=== PATIENT | female | born 1995 | race Caucasian/White ===

== ENCOUNTER 2017-01-12 12:39 | Emergency (ER) | payer MEDICAID ==
[~2017-01-12 12:39] MED LIST: EPIP0.3I IM; MACR100C2 PO; PREN1CAP7 PO; PROM25TA5 PO
[2017-01-12 12:55] VITALS: RESP 24; TEMP 98.7
[2017-01-12] MEDS ORDERED: ONDANSETRON HCL 4 MG/2 ML VIAL IV PUSH ONE (13:30)
[2017-01-12] MEDS ORDERED: LACTATED RINGER'S 1000 ML INJ 1,000 ML IV ONE (13:30)
[2017-01-12] MEDS ORDERED: ACETAMINOPHEN 325 MG TAB PO ONE (13:30)
--- NOTE | 2017-01-12 13:47 | PD ---
HPI Chief Complaint Contractions, vomiting, headache Date Seen: Jan 12, 2017 Time Seen: 13:10 (Kyle Fagan MD R1) Travel History International Travel<30 Days: No Contact w/Intl Traveler<30Days: No Known Affected Area: No (Kyle Fagan MD R1) History of Present Illness HPI 21 year old at 36/6 weeks gestation presents to OB ED with complaints of contractions beginning yesterday evening and occurring throughout today. She states her contractions have been occurring about every 5-6 minutes. She is unsure if they have been increasing in intensity. She also reports multiple episodes of vomiting overnight with her last episode within an hour prior to presentation here. She does state others in her household have been sick with a stomach bug after eating out earlier in the week however everyone else seems to have gotten better. She denies any fevers. She also complains of a headache that began last night and is now slightly worse. Denies RUQ pain or worsening lower extremity swelling. She continues to have swelling up to her sock line bilaterally which is her baseline. She denies dysuria or hematuria. Denies chest pain. She does report mild shortness of breath occurring since last night as well. Para: 1 : 3 (Kyle Fagan MD R1) History Past Medical History Narrative Medical History of seizures, she reports her last seizure was a couple months ago during this Anxiety (Kyle Fagan MD R1) Obstetric History Obstetric History 1 spontaneous Previous delivery on 04/25/2013 at 38 weeks gestation via vaginal delivery at [facility], at 6 weeks of age due to SIDS (Kyle Fagan MD R1) Past Surgical History Narrative Surgical Cholecystectomy in 2012 (Kyle Fagan MD R1) Family History Family History: Negative (Kyle Fagan MD R1) Social History Alcohol Use: No Tobacco Use: Yes (Admits to smoking 1 PPD in up until 18 weeks gestation when she quit) Substance Abuse: No (Kyle Fagan MD R1) Allergies-Medications (Allergen,Severity, Reaction): Coded Allergies: Cat Dander (Verified Allergy, Severe, 10/05/16) Coconut (Unverified Allergy, Severe, 10/05/16) Dilaudid (Unverified Allergy, Severe, 10/05/16) Latex (Unverified Allergy, Severe, 10/05/16) Bees (Verified Allergy, Unknown, 10/05/16) Home Meds Active Scripts Ondansetron Odt (Zofran Odt)8 Mg Tab8 Mg SL Q8H PRN (NAUSEA OR VOMITING) #15 TAB Ref 0 Prov:Kyle Fagan MD 01/12/17 Nitrofurantoin Monohydrate Macrocrystals (Macrobid)100 Mg [id number] Mg PO BID #14 CAP Ref 0 Prov:Cece Acharya 10/05/16 Promethazine (Phenergan)25 Mg Tab25 Mg PO Q6H PRN (Nausea/Vomiting) #30 TAB Ref 1 Prov:Cece Acharya 10/05/16 Epinephrine Inj (Epipen 2-Sal Inj)0.3 Mg/0.3 Ml Pfpen0.3 Mg IM ONCE PRN ( ALLERGIC REACTION) #1 PACK Ref 0 Prov:Cece Acharya 10/05/16 Reported Medications W/O Vit A W/ Fe Fumar (Citranatal [place])27-1-260 Mg Cap1 Cap PO DAILY #30 CAP Ref 0 09/07/16 Discontinued Scripts Ondansetron Odt (Zofran Odt)8 Mg Tab8 Mg SL Q8H PRN (NAUSEA OR VOMITING) #15 TAB Ref 0 Prov:Kyle Fagan MD R1 01/12/17 Review of Systems Except as stated in HPI: all other systems reviewed are Neg (Kyle Fagan MD R1) Physical Exam Narrative GENERAL: Well-nourished, well-developed patient. SKIN: Warm and dry. HEAD: Normocephalic and atraumatic. EYES: No scleral icterus. No injection or drainage. ENT: No nasal drainage noted. Mucous membranes pink. Airway patent. NECK: Supple, trachea midline. No JVD. CARDIOVASCULAR: Regular rate and rhythm without murmurs, gallops, or rubs. RESPIRATORY: Breath sounds equal bilaterally. No accessory muscle use. ABDOMEN/GI: Abdomen soft, non-tender, bowel sounds present, no rebound, no guarding Gravid to 37 weeks size GENITOURINARY: External Genitalia: intact and normal in appearance Cervix: [-] Dilatation: closed Effacement: 0% Station: -2 Presentation: vertex Membranes: [] Uterine Contractions: None on tocometer FHT's: Category: I Baseline: 140s Reactive: yes Variability: mod Decels: one variable decel noted EXTREMITIES: No cyanosis or edema. BACK: Nontender without obvious deformity. No CVA tenderness. NEUROLOGICAL: Awake and alert. Motor and sensory grossly within normal limits. Normal speech. (Kyle Fagan MD R1) Data Data Vital Signs Reviewed: Yes Orders Vital Signs (Adult) .ON ADMISSION (01/12/17 13:19) ^ Labor Status (01/12/17 13:19) ^ Hydration (01/12/17 13:19) Acetaminophen (Tylenol) (01/12/17 13:30) Lr (Bolus) Inj (01/12/17 13:30) Complete Blood Count With Diff (01/12/17 13:19) Basic Metabolic Panel (Bmp) (01/12/17 13:19) Ondansetron Inj (Zofran Inj) (01/12/17 13:30) (Kyle Fagan MD R1) MDM Medical Record Reviewed: Yes Plan 21 year old at 36/6 weeks gestation presents to OB ED with complaints of contractions beginning yesterday evening and occurring throughout today, as well as vomiting throughout last night, and headache. 1. IUP - Category I tracing - No contractions on tocometer - Cervix: closed/0%/-2 - No report of loss of fluid - GBS status unknown - Counseled patient on signs of active labor and need follow up with her OB provider for continued care 2. Dehydration & Vomiting - Given 1L bolus of LR - Zofran 4 mg IV once - Encouraged oral hydration - BMP remarkable for potassium of 3.4 - Will provide prescription for sublingual zofran prn N/V for outpatient 3. Headache - Tylenol 650 mg po once - Tylenol prn at home - Advised patient that if headaches worsen or are accompanied by visual symptoms to seek care from her OB provider molnia Mujica (Kyle Fagan MD R1) Diagnosis Diagnosis: Primary Impression: Dehydration Additional Impression: Intrauterine Disposition: DISCHARGE HOME Condition: Stable Scripts Ondansetron Odt (Zofran Odt)8 Mg Tab8 Mg SL Q8H PRN (NAUSEA OR VOMITING) #15 TAB Ref 0 Prov:Kyle Fagan MD R1 01/12/17 Attestation Patient seen and discussed with resident. Agree with management (Justine Mujica MD ) Kyle Fagan MD R1 Jan 12, 2017 13:47 Justine Mujica MD Jan 12, 2017 19:36
[2017-01-12 14:21] LABS: AUTOMATED NEUTROPHIL # 12.8 TH/MM3 (1.8-7.7); BASOPHIL % 0.2 % (0.0-2.0); EOSINOPHIL # 0.1 TH/MM3 (0-0.4); EOSINOPHIL % 0.5 % (0.0-4.0); HEMO FLAGS DIFF FINAL; LYMPH % 5.7 % (9.0-44.0); LYMPHOCYTE # 0.8 TH/MM3 (1.0-4.8); MEAN CELL VOLUME 87.3 FL (80.0-100.0); MEAN CORPUSCULAR HGB CONC 34.3 % (32.0-36.0); MONO % 5.6 % (0.0-8.0); PLATELET COUNT 217 TH/MM3 (150-450); RED BLOOD COUNT 4.12 MIL/MM3 (4.00-5.30); RED CELL DISTRIBUTION WIDTH 13.5 % (11.6-17.2); WHITE BLOOD COUNT 14.5 TH/MM3 (4.0-11.0)
[2017-01-12 14:36] LABS: BICARBONATE 21.7 MEQ/L (21.0-32.0); POTASSIUM 3.4 MEQ/L (3.5-5.1)
[2017-01-12 14:45] VITALS: BP 124/50; PULSE 104
[2017-01-12 14:50] VITALS: PULSE 108
[2017-01-12 14:55] VITALS: PULSE 111
[2017-01-12] MEDS ORDERED: POTASSIUM CHLORIDE 20 MEQ CONTROLLED RELEASE TAB PO ONE (15:00)
[2017-01-12] MEDS ORDERED: ZOFR8TAB4 SL ×2 (15:02→15:06)
[2017-01-17] MEDS ORDERED: ZOFR4TAB PO (13:46)
[2017-01-31] MEDS ORDERED: RANI150T PO (16:34)
== END 2017-01-12 15:45 | disposition home or self-care (01) ==
LOC: HOBED 12:39
DX: E86.0 Dehydration (principal); R56.9 Unspecified convulsions; R51 Headache; Z3A.36 36 weeks gestation of pregnancy
CPT/HCPCS: 80048; 85025; 96361; 96374; 99284; J2405; J7120

== ENCOUNTER 2017-02-16 16:56 | Emergency (ER) | payer MEDICAID ==
[~2017-02-16 16:56] MED LIST changes: -MACR100C2 PO; -PROM25TA5 PO; +RANI150T PO; +ZOFR4TAB PO; +ZOFR8TAB4 SL
[2017-02-16 17:25] VITALS: PULSE 129; O2SAT 100
[2017-02-16 17:30] VITALS: PULSE 134; O2SAT 100
[2017-02-16 17:35] VITALS: PULSE 119; O2SAT 100
[2017-02-16 17:40] VITALS: PULSE 124; O2SAT 100
[2017-02-16 17:51] LABS: HEMATOCRIT 37.8 % (35.0-46.0); MEAN CORPUSCULAR HEMOGLOBIN 28.2 PG (27.0-34.0); MEAN CORPUSCULAR HGB CONC 33.2 % (32.0-36.0); PLATELET COUNT 236 TH/MM3 (150-450); RED BLOOD COUNT 4.45 MIL/MM3 (4.00-5.30); RED CELL DISTRIBUTION WIDTH 13.6 % (11.6-17.2); REVIEW FLAG FINAL
[2017-02-16 18:22] LABS: ALT (GPT) 19 U/L (9-42); ANION GAP 12 MEQ/L (5-15); AST (GOT) 11 U/L (16-38); BICARBONATE 19.5 MEQ/L (21.0-32.0); BLOOD UREA NITROGEN 4 MG/DL (7-18); CHLORIDE 105 MEQ/L (98-107); GLOMERULAR FILTRATION RATE 145 ML/MIN (>89); POTASSIUM 3.6 MEQ/L (3.5-5.1); SODIUM (NA) 136 MEQ/L (136-145); URIC ACID 3.6 MG/DL (2.6-6.0)
[2017-02-16 18:24] LABS: ALKALINE PHOSPHATASE 206 U/L (45-117); BLOOD, URINE NEG (NEG); COMMENT (UR) CULT NOT INDICATED; CULTURE IF INDICATED CULT NOT INDICATED; GLUCOSE,URINE NEG (NEG); KETONE, URINE NEG (NEG); MUCUS URINE FEW /lpf (OCC); NITRITE,URINE NEG (NEG); SQUAMOUS EPITHELIAL CELL URINE 2 /hpf (0-5); TOTAL BILIRUBIN ADULT 0.2 MG/DL (0.2-1.0); URINE COLOR YELLOW (YELLW/STRAW)
--- NOTE | 2017-02-16 19:36 | PD ---
HPI Chief Complaint sent from [facility] for eval of elevated blood pressure Date Seen: Feb 16, 2017 Time Seen: 18:45 Travel History International Travel<30 Days: No Contact w/Intl Traveler<30Days: No Known Affected Area: No History of Present Illness HPI Pt is a 21 y/o with IUP at 39w1d who was sent from [facility] for evaluation of elevated blood pressure. Pt with multiple complaints including SOB, heart racing, feeling like she is going to "pass out" She reports irreg contractions. denies vb, lof. +FM History Past Medical History Narrative Medical anxiety, seizure disorder (no meds) Obstetric History Obstetric History SAB x 1 FTSVD 2012, baby at 6 wks, SIDS Past Surgical History Surgical History: No Previous Surgery Family History Family History: Negative Social History Alcohol Use: No Tobacco Use: Yes Substance Abuse: No Allergies-Medications (Allergen,Severity, Reaction): Coded Allergies: Cat Dander (Verified Allergy, Severe, 02/10/17) Coconut (Unverified Allergy, Severe, 02/10/17) Dilaudid (Unverified Allergy, Severe, 02/10/17) Latex (Unverified Allergy, Severe, 02/10/17) Bees (Verified Allergy, Unknown, 02/10/17) Home Meds Active Scripts Ranitidine 150 Mg Qdd702 Mg PO BID #60 TAB Ref 3 Prov:Cece Acharya 01/31/17 Ondansetron (Zofran)4 Mg Tab4 Mg PO Q8HR PRN (NAUSEA OR VOMITING) #30 TAB Ref 0 Prov:Cece Acharya 01/17/17 Ondansetron Odt (Zofran Odt)8 Mg Tab8 Mg SL Q8H PRN (NAUSEA OR VOMITING) #15 TAB Ref 0 Prov:Kyle Fagan MD R1 01/12/17 Epinephrine Inj (Epipen 2-Sal Inj)0.3 Mg/0.3 Ml Pfpen0.3 Mg IM ONCE PRN ( ALLERGIC REACTION) #1 PACK Ref 0 Prov:Cece Acharya 10/05/16 Reported Medications W/O Vit A W/ Fe Fumar (Citranatal [place])27-1-260 Mg Cap1 Cap PO DAILY #30 CAP Ref 0 09/07/16 Review of Systems General / Constitutional: Weight Gain Eyes: No: Diploplia, Blurred Vision, Visual changes, Pain, Photophobia, Other Cardiovascular: Palpitations, Tachycardia Respiratory: Short of Breath Gastrointestinal: Abdominal Pain Genitourinary: Pelvic Pain Musculoskeletal: No: Limited ROM, Weakness, Cramping, Edema, Pain, Other Skin: No Rash, No Itching, No Dryness, No Lumps, No Change in Pigmentation, No Change in Nails, No Alopecia, No Lesions, No Breast Lumps, No Breast Tenderness , No Breast Swelling, No Other Neurologic: Dizziness Psychiatric: Anxiety Endocrine: No: Heat Intolerance, Cold Intolerance, Polydipsia, Polyuria, Other Hematologic/Lymphatic: No Easy Bruising, No Lymph Node Enlargement, No Other Physical Exam Vital Signs Date Time Temp Pulse Resp B/P Pulse Ox O2 Delivery O2 Flow Rate FiO2 02/16/17 17:40 124 100 02/16/17 17:35 119 100 02/16/17 17:30 134 100 02/16/17 17:25 129 100 121/73, Narrative GENERAL: Well-nourished, well-developed patient. SKIN: Warm and dry. HEAD: Normocephalic and atraumatic. EYES: No scleral icterus. No injection or drainage. ENT: No nasal drainage noted. Mucous membranes pink. Airway patent. NECK: Supple, trachea midline. No JVD. CARDIOVASCULAR: Regular rate and rhythm without murmurs, gallops, or rubs. RESPIRATORY: Breath sounds equal bilaterally. No accessory muscle use. ABDOMEN/GI: Abdomen soft, non-tender, bowel sounds present, no rebound, no guarding Gravid GENITOURINARY: External Genitalia: intact and normal in appearance BUS glands: [wnl] Cervix: mid-position Dilatation: 2 Effacement: 50 Station: -3 Presentation: [facility] Membranes: intact Uterine Contractions: irregular FHT's: Category: 1 Baseline: 130s Reactive: yes Variability: mod Decels: none EXTREMITIES: No cyanosis or edema. BACK: Nontender without obvious deformity. No CVA tenderness. NEUROLOGICAL: Awake and alert. Motor and sensory grossly within normal limits. Five out of 5 muscle strength in all muscle groups. Normal speech. Data Data Vital Signs Reviewed: Yes Orders Vital Signs (Adult) .ON ADMISSION (02/16/17 17:25) ^ Labor Status (02/16/17 17:25) Urinalysis - C+S If Indicated (02/16/17 17:25) ^ Non Stress Test (02/16/17 17:25) Cbc No Diff, Includes Plts (02/16/17 17:25) Comprehensive Metabolic Panel (02/16/17 17:25) Uric Acid (02/16/17 17:25) Labs Laboratory Tests Test 02/16/17 17:35 White Blood Count 15.0 Red Blood Count 4.45 Hemoglobin 12.5 Hematocrit 37.8 Mean Corpuscular Volume 85.0 Mean Corpuscular Hemoglobin 28.2 Mean Corpuscular Hemoglobin 33.2 Concent Red Cell Distribution Width 13.6 Platelet Count 236 Mean Platelet Volume 8.9 Urine Color YELLOW Urine Turbidity CLEAR Urine pH 6.0 Urine Specific [place] 1.011 Urine Protein NEG Urine Glucose (UA) NEG Urine Ketones NEG Urine Occult Blood NEG Urine Nitrite NEG Urine Bilirubin NEG Urine Urobilinogen LESS THAN 2.0 Urine Leukocyte Esterase TRACE Urine WBC 1 Urine Squamous Epithelial 2 Cells Urine Mucus FEW Microscopic Urinalysis Comment CULT NOT INDICATED Sodium Level 136 Potassium Level 3.6 Chloride Level 105 Carbon Dioxide Level 19.5 Anion Gap 12 Blood Urea Nitrogen 4 Creatinine 0.54 Estimat Glomerular Filtration 145 Rate Random Glucose 121 Uric Acid 3.6 Calcium Level 8.9 Total Bilirubin 0.2 Aspartate Amino Transf 11 (AST/SGOT) Alanine Aminotransferase 19 (ALT/SGPT) Alkaline Phosphatase 206 Total Protein 7.1 Albumin 2.6 MDM Medical Record Reviewed: Yes Diagnosis Diagnosis: Primary Impression: 39 weeks gestation of Additional Impression: Gestational dyspnea Disposition: 01 DISCHARGE HOME Condition: Stable Patient Instructions: General Instructions Additional Instructions: DRINK PLENTY OF WATER DURING DAY, RETURN FOR LEAKING FLUID, VAGINAL BLEEDING, STRONG CONTRACTIONS OR DECREASE IN MOVEMENT. RETURN 02/17/17 @ 6PM FOR INDUCTION OF LABOR. Departure Forms: Tests/Procedures Oj Shields MD Feb 16, 2017 19:36
== END 2017-02-16 19:00 | disposition home or self-care (01) ==
LOC: HOBED 16:56
DX: O26.93 Pregnancy related conditions, unspecified, third trimester (principal); R06.00 Dyspnea, unspecified; Z3A.39 39 weeks gestation of pregnancy
CPT/HCPCS: 80053; 81001; 84550; 85027; 99284

== ENCOUNTER 2017-02-17 23:56 | Inpatient (IN) | payer MEDICAID ==
[~2017-02-17] VITALS: Ht 167.6 cm; Wt 103.4 kg
[2017-02-18] VITALS (88 sets, daily range): BP systolic 76–144; BP diastolic 35–85; PULSE 75–164; RESP 18–24; TEMP 98–98.8
[2017-02-18] MEDS ORDERED: PROM25TA5 PO (01:12)
[2017-02-18] MEDS ORDERED: LIDOCAINE HCL 1% 50 ML VIAL ONE (01:18)
[2017-02-18] MEDS: LACTATED RINGER'S 1000 ML INJ 1,000 ML IV SCH ×3 (01:35→16:11)
[2017-02-18] MEDS ORDERED: LACTATED RINGER'S 1000 ML INJ 1,000 ML IV PRN (03:37)
[2017-02-18] MEDS ORDERED: OXYTOCIN 30 UNITS-500ML PREMIX 500 ML IV ONE (03:45)
[2017-02-18] MEDS ORDERED: CITRIC ACID-SODIUM CITRATE LIQ 30 ML UDC PO SCH (03:45)
[2017-02-18] MEDS ORDERED: LIDOCAINE HCL 1% 50 ML VIAL I-DERMAL PRN (03:45)
[2017-02-18] MEDS ORDERED: SODIUM CHLORID 0.9% 500 ML INJ 500 ML IV PRN (03:45)
[2017-02-18] MEDS ORDERED: LIDOCAINE HCL 1% 50 ML VIAL INFIL PRN (03:45)
[2017-02-18] MEDS ORDERED: MINERAL OIL 10 ML VIAL TOPICAL PRN (03:45)
[2017-02-18] MEDS ORDERED: ONDANSETRON HCL 4 MG/2 ML VIAL IV PRN (03:45)
[2017-02-18 03:48] LABS: BASOPHIL # 0.1 TH/MM3 (0-0.2); BASOPHIL % 0.5 % (0.0-2.0); EOSINOPHIL # 0.4 TH/MM3 (0-0.4); EOSINOPHIL % 2.7 % (0.0-4.0); HEMATOCRIT 37.1 % (35.0-46.0); HEMO FLAGS DIFF FINAL; LYMPH % 22.4 % (9.0-44.0); LYMPHOCYTE # 3.1 TH/MM3 (1.0-4.8); MEAN CELL VOLUME 86.1 FL (80.0-100.0); MEAN CORPUSCULAR HEMOGLOBIN 28.5 PG (27.0-34.0); MEAN CORPUSCULAR HGB CONC 33.1 % (32.0-36.0); MONO % 9.5 % (0.0-8.0); NEUT % 64.9 % (16.0-70.0); PLATELET COUNT 231 TH/MM3 (150-450); RED CELL DISTRIBUTION WIDTH 13.6 % (11.6-17.2); WHITE BLOOD COUNT 13.8 TH/MM3 (4.0-11.0)
[2017-02-18] MEDS ORDERED: SODIUM CHLOR 0.9% 1000 ML INJ 1,000 ML IV PRN (03:57)
[2017-02-18] MEDS ORDERED: PENICILLIN G POTASSIUM INJ 5,000,000 UNITS in SODIUM CHLORIDE 0.9% INJ 100 ML IV ONE (04:00)
--- NOTE | 2017-02-18 04:02 | HHI.HP ---
HPI Chief Complaint IOL Date Seen: Feb 18, 2017 Travel History International Travel<30 Days: No Contact w/Intl Traveler<30Days: No History of Present Illness HPI 21 yo @ 39w3d with EDC 02-22-2017. care with [facility]. Patient with history of anxiety and pseudoseizures. Also history of polysubstance abuse. Patient was seen 02-16 in the clinic and sent to L&D for BP check. Bps stable, and mild tachycardia with anxiety. Workup was negative. She was scheduled for IOL. History Past Medical History Narrative Medical Polysubstance abuse - methamphetamine/benzo/cocain/IV Dilaudid/marijuana - last admit Anxiety - ADHD previously on Zoloft Pseudoseizures/hx of brain cyst Asthma Obstetric History Obstetric History x 1 ( of SIDS @ 6 weeks) SAB x 1 Past Surgical History Narrative Surgical Cholecystectomy 2013 Brain cyst removed 2014 Family History Family History: Negative Social History Tobacco Use: Yes Substance Abuse: Yes (hx of polysubstance abuse) Allergies-Medications (Allergen,Severity, Reaction): Coded Allergies: Cat Dander (Verified Allergy, Severe, 02/10/17) Coconut (Unverified Allergy, Severe, 02/10/17) Dilaudid (Unverified Allergy, Severe, 02/10/17) Latex (Unverified Allergy, Severe, 02/10/17) Bees (Verified Allergy, Unknown, 02/10/17) Home Meds Active Scripts Ranitidine 150 Mg Oko120 Mg PO BID #60 TAB Ref 3 Prov:Cece Acharya 01/31/17 Reported Medications Promethazine (Phenergan)25 Mg Tab25 Mg PO Q6H PRN (Nausea/Vomiting) Ref 0 02/18/17 W/O Vit A W/ Fe Fumar (Citranatal [place])27-1-260 Mg Cap1 Cap PO DAILY #30 CAP Ref 0 09/07/16 Discontinued Scripts Ondansetron (Zofran)4 Mg Tab4 Mg PO Q8HR PRN (NAUSEA OR VOMITING) #30 TAB Ref 0 Prov:Cece Acharya 01/17/17 Ondansetron Odt (Zofran Odt)8 Mg Tab8 Mg SL Q8H PRN (NAUSEA OR VOMITING) #15 TAB Ref 0 Prov:Kyle Fagan MD R1 01/12/17 Epinephrine Inj (Epipen 2-Sal Inj)0.3 Mg/0.3 Ml Pfpen0.3 Mg IM ONCE PRN ( ALLERGIC REACTION) #1 PACK Ref 0 Prov:Cece Acharya 10/05/16 Review of Systems General / Constitutional: No: Fever, Chills HENT: No: Headaches, Vertigo Cardiovascular: No: Chest Pain or Discomfort, Palpitations Respiratory: No: Cough, Short of Breath Gastrointestinal: No: Nausea, Vomiting, Diarrhea, Abdominal Pain Genitourinary: No: Urgency, Frequency, Dysuria Musculoskeletal: No: Limited ROM, Weakness Skin: No Rash, No Itching, No Lesions Neurologic: No: Focal Abnormalities, Coordination Problem Physical Exam BP: 113/66, P92, R 18. Pain 0 Narrative GENERAL: Well-nourished, well-developed patient. SKIN: Warm and dry. HEAD: Normocephalic and atraumatic. EYES: No scleral icterus. No injection or drainage. ENT: No nasal drainage noted. Mucous membranes pink. Airway patent. NECK: Supple, trachea midline. No JVD. CARDIOVASCULAR: Regular rate and rhythm without murmurs, gallops, or rubs. RESPIRATORY: Breath sounds equal bilaterally. No accessory muscle use. BREASTS: Bilateral exam showed no masses , no retractions, no nipple discharge. ABDOMEN/GI: Abdomen soft, non-tender, no rebound, no guarding Gravid GENITOURINARY: TOCO: No UC internal OS CLOSED (external OS 2cm )/50%/-3 FHT's: Category: I Baseline: 120 Reactive: + accelerations Variability: mod Decels: [-] EXTREMITIES: No cyanosis or edema. BACK: Normal ROM NEUROLOGICAL: Awake and alert. Motor and sensory grossly within normal limits. Normal speech. BEDSIDE US: Cephalic presentation confirmed Data Data Vital Signs Reviewed: Yes Orders Lidocaine 1% Inj (50 Ml) (Xylocaine 1% I (02/18/17 01:18) Admit To Inpatient (02/18/17 ) Code Status (02/18/17 03:37) Vital Signs (Adult) .Per protocol (02/18/17 03:37) Activity Oob Ad Suzanne (02/18/17 03:37) Heart (02/18/17 03:37) Amnioinfusion (02/18/17 03:37) Urinary Catheter Management .ONCE (02/18/17 03:37) Diet Liquid (02/18/17 Breakfast) Lactated Ringer's 1000 Ml Inj (Lr 1000 M (02/18/17 03:37) Lactated Ringer's 1000 Ml Inj (Lr 1000 M (02/18/17 03:37) Sodium Chlorid 0.9% 500 Ml Inj (Ns 500 M (02/18/17 03:45) Sodium Chlor 0.9% 1000 Ml Inj (Ns 1000 M (02/18/17 03:57) Lidocaine 1% Inj (50 Ml) (Xylocaine 1% I (02/18/17 03:45) Citric Acid-Sodium Citrate Liq (Bicitra (02/18/17 03:45) Ondansetron Inj (Zofran Inj) (02/18/17 03:45) Fentanyl Inj (Fentanyl Inj) (02/18/17 03:45) Fentanyl Inj (Fentanyl Inj) (02/18/17 03:45) Penicillin G Potassium Inj (Pfizerpen-G (02/18/17 04:00) Penicillin G Potassium Inj (Pfizerpen-G (02/18/17 08:00) Complete Blood Count With Diff (02/18/17 03:37) Hold Clot (02/18/17 03:37) Abo/Rh Blood Type (02/18/17 03:37) Resp Oxygen Non Rebreathe Mask (02/18/17 ) ^ Epidural / Intrathecal Infus (02/18/17 03:37) Oxytocin 30 Units-500ml Premix (Pitocin (02/18/17 03:45) Lidocaine 1% Inj (50 Ml) (Xylocaine 1% I (02/18/17 03:45) Light Mineral Oil (Muri-Lube Oil) (02/18/17 03:45) Inpatient Certification (02/18/17 ) Activity Oob Ad Suzanne (02/18/17 03:37) Activity Oob Ad Suzanne (02/18/17 03:37) ^ Vaginal Insert (02/18/17 03:37) ^ Vaginal Lavage (02/18/17 03:37) Heart (02/18/17 03:37) Ob/Psych Drug Screen, Urine (02/18/17 03:41) Labs Laboratory Tests Test 02/18/17 01:35 White Blood Count 13.8 Red Blood Count 4.30 Hemoglobin 12.3 Hematocrit 37.1 Mean Corpuscular Volume 86.1 Mean Corpuscular Hemoglobin 28.5 Mean Corpuscular Hemoglobin 33.1 Concent Red Cell Distribution Width 13.6 Platelet Count 231 Mean Platelet Volume 10.1 Neutrophils (%) (Auto) 64.9 Lymphocytes (%) (Auto) 22.4 Monocytes (%) (Auto) 9.5 Eosinophils (%) (Auto) 2.7 Basophils (%) (Auto) 0.5 Neutrophils # (Auto) 9.0 Lymphocytes # (Auto) 3.1 Monocytes # (Auto) 1.3 Eosinophils # (Auto) 0.4 Basophils # (Auto) 0.1 CBC Comment DIFF FINAL Differential Comment Assessment/Plan Assessment and Plan 39 weeks Scheduled for IOL CAT I FHT Internal OS closed - cervical ripening indicated, reviewed medication. Reviewed induction of labor, cervical ripening, Pitocin augmentation. Hx of polysubstance abuse with admission 12/2015. UDS obtained. 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 Reports sz like activity with anxiety. No anti-epileptic medications. Anxiety d/o Sheryl Antony MD Feb 18, 2017 04:02
[2017-02-18 04:08] LABS: AMPHETAMINE, URINE NEG (NEG); BARBITURATES, URINE NEG (NEG); COCAINE, URINE NEG (NEG)
[2017-02-18] MEDS ORDERED: DINOPROSTONE 10 MG VAG INSERT VAGINAL ONE (04:15)
[2017-02-18] MEDS ORDERED: ZOLPIDEM TARTRATE 10 MG TAB PO ONE (05:00)
[2017-02-18] MEDS: PENICILLIN G POTASSIUM INJ 2,500,000 UNITS in SODIUM CHLORIDE 0.9% INJ 100 ML IV SCH ×3 (08:30→16:51)
[2017-02-18] MEDS ORDERED: fentaNYL 2MCG-BUPIV 0.125% INJ 100 ML ONE (17:04)
--- NOTE | 2017-02-18 18:40 | PD.LABORPN ---
Subjective Subjective Pt doing very well. Epidural in place. Feels very comfortable. Family members at bedside. Objective Vital Signs Vital Signs Date Time Temp Pulse Resp B/P Pulse Ox O2 Delivery O2 Flow Rate FiO2 02/18/17 17:56 80 133/65 02/18/17 17:55 100 02/18/17 17:52 102 144/85 02/18/17 17:50 99 02/18/17 17:50 103 131/67 02/18/17 17:45 110 02/18/17 17:33 20 02/18/17 17:32 96 124/67 02/18/17 17:30 102 02/18/17 16:58 98.8 24 02/18/17 16:57 97 140/69 02/18/17 16:55 111 02/18/17 16:50 113 02/18/17 15:30 24 02/18/17 12:30 20 02/18/17 12:15 92 122/58 02/18/17 12:14 98.0 02/18/17 10:56 98.3 18 02/18/17 10:55 105 113/63 Objective Pelvic Exam: Cervix: Posterior and high Dilatation: 4cm Effacement: 60% Station: -3 Presentation: Cephalic Membranes: Intact Uterine Contractions: present Q2-3 mins FHT's: Category: I Baseline: 135 Reactive: Up to 155 Variability: Moderate Decels: None Assessment/Plan Assessment and Plan 21 @ 39/3 weeks gestation in active labor, GBS positive Intrauterine - tracing category 1 reassuring -Cervical exam: /-3 -GBS positive, on penicillin G -Epidural in place -Membrane intact, holding off on rupturing due to ballotable head - risk for cord prolapse -Continue routine antepartum care -Expect vaginal delivery EkoNahomy MD R1 Feb 18, 2017 18:40
[2017-02-18] MEDS ORDERED: DO NOT ADMINISTER ANTICOAGULANTS PRN (18:45)
[2017-02-18] MEDS ORDERED: ePHEDrine/NS 25 MG/5 ML SYR IV PRN (18:45)
[2017-02-18] MEDS ORDERED: NO SYSTEM NARCOTICS PRN (18:45)
[2017-02-18] MEDS ORDERED: fentaNYL 2MCG-BUPIV 0.125% 100 ML EPIDURAL SCH (18:45)
[2017-02-18] MEDS ORDERED: OXYTOCIN 30 UNITS-500ML PREMIX 500 ML IV SCH (19:30)
--- NOTE | 2017-02-18 20:37 | PD.LABORPN ---
Subjective Subjective Resting comfortably. Is able to slightly feel contractions. Objective Vital Signs Vital Signs Date Time Temp Pulse Resp B/P Pulse Ox O2 Delivery O2 Flow Rate FiO2 02/18/17 20:10 84 02/18/17 20:05 82 02/18/17 20:00 84 02/18/17 20:00 86 118/74 02/18/17 19:45 98.0 18 02/18/17 19:40 99 02/18/17 19:35 86 02/18/17 19:30 80 02/18/17 19:30 89 97/47 02/18/17 19:05 97 02/18/17 19:00 92 02/18/17 19:00 88 108/52 02/18/17 18:55 82 02/18/17 18:50 86 02/18/17 18:45 90 02/18/17 18:40 104 02/18/17 18:35 96 02/18/17 18:35 113 124/62 02/18/17 18:30 92 131/78 02/18/17 18:30 94 02/18/17 18:25 89 119/72 02/18/17 18:25 90 02/18/17 18:20 87 128/75 02/18/17 18:20 90 02/18/17 18:15 104 116/76 02/18/17 18:15 104 02/18/17 18:10 93 02/18/17 18:10 122/67 02/18/17 18:10 100 02/18/17 18:05 85 02/18/17 18:05 118/65 02/18/17 18:05 86 02/18/17 18:00 95 119/71 02/18/17 18:00 89 02/18/17 17:56 80 133/65 02/18/17 17:55 100 02/18/17 17:52 102 144/85 02/18/17 17:50 99 02/18/17 17:50 103 131/67 02/18/17 17:45 110 02/18/17 17:33 20 02/18/17 17:32 96 124/67 02/18/17 17:30 102 02/18/17 16:58 98.8 24 02/18/17 16:57 97 140/69 02/18/17 16:55 111 02/18/17 16:50 113 02/18/17 15:30 24 Objective Based on evaluation at 1845 Pelvic Exam: Cervix: mid position, soft Dilatation: 4 Effacement: 60 Station: -3 Presentation: vertex Membranes: intact Uterine Contractions: q2-3min FHT's: Category: 1 Baseline: 120 Reactive: accels present Variability: moderate Decels: none Assessment/Plan Assessment and Plan 21 @ 39/3 weeks gestation in active labor, GBS positive Intrauterine - tracing category 1 reassuring -Cervical exam: 60/-3 at 1845 -GBS positive, on penicillin G -Epidural in place -labor augmentation with Pitocin -Will proceed with amniotomy if there is improved head contact with cervix at next check. Will place IUPC at that time as well. -Continue routine antepartum care -Expect vaginal delivery dw Dr. Sil Ruiz-Angi Cedillo MD R2 Feb 18, 2017 20:37
--- NOTE | 2017-02-18 22:10 | PD.LABORPN ---
Subjective Subjective Resting comfortably in bed. No acute concerns Objective Vital Signs Vital Signs Date Time Temp Pulse Resp B/P Pulse Ox O2 Delivery O2 Flow Rate FiO2 02/18/17 21:05 86 02/18/17 21:00 83 119/71 02/18/17 21:00 86 02/18/17 20:40 84 02/18/17 20:35 77 02/18/17 20:30 81 02/18/17 20:30 85 122/65 02/18/17 20:15 18 02/18/17 20:10 84 02/18/17 20:05 82 02/18/17 20:00 84 02/18/17 20:00 86 118/74 02/18/17 19:45 98.0 18 02/18/17 19:40 99 02/18/17 19:35 86 02/18/17 19:30 80 02/18/17 19:30 89 97/47 02/18/17 19:05 97 02/18/17 19:00 92 02/18/17 19:00 88 108/52 02/18/17 18:55 82 02/18/17 18:50 86 02/18/17 18:45 90 02/18/17 18:40 104 02/18/17 18:35 96 02/18/17 18:35 113 124/62 02/18/17 18:30 92 131/78 02/18/17 18:30 94 02/18/17 18:25 89 119/72 02/18/17 18:25 90 02/18/17 18:20 87 128/75 02/18/17 18:20 90 02/18/17 18:15 104 116/76 02/18/17 18:15 104 02/18/17 18:10 93 02/18/17 18:10 122/67 02/18/17 18:10 100 02/18/17 18:05 85 02/18/17 18:05 118/65 02/18/17 18:05 86 02/18/17 18:00 95 119/71 02/18/17 18:00 89 02/18/17 17:56 80 133/65 02/18/17 17:55 100 02/18/17 17:52 102 144/85 02/18/17 17:50 99 02/18/17 17:50 103 131/67 02/18/17 17:45 110 02/18/17 17:33 20 02/18/17 17:32 96 124/67 02/18/17 17:30 102 02/18/17 16:58 98.8 24 02/18/17 16:57 97 140/69 02/18/17 16:55 111 02/18/17 16:50 113 02/18/17 15:30 24 Objective Pelvic Exam: Cervix: midposition Dilatation: 5-6 Effacement: 70 Station: -2 Presentation: vertex Membranes: AROM clear, large amount of fluid Uterine Contractions: q2min FHT's: Category: 1 Baseline: 120 Reactive: accels present Variability: moderate Decels: none Assessment/Plan Assessment and Plan 19 @ 39/3 weeks gestation in active labor, GBS positive Intrauterine - tracing category 1 reassuring -Cervical exam: 5-6/70/-2 -GBS positive, on penicillin G -Epidural in place -labor augmentation with Pitocin -Amniotomy, IUPC placement, and electrode placement by Dr. Mujica. -Continue routine antepartum care -Expect vaginal delivery sdw Dr. Mujica and Dr. Yuri Ruiz-Angi Cedillo MD R2 Feb 18, 2017 22:10
[2017-02-18] MEDS ORDERED: ACETAMINOPHEN 325 MG TAB PO ONE (22:30)
[2017-02-18] MEDS ORDERED: ACETAMINOPHEN 325 MG TAB PO PRN (22:30)
[2017-02-18] MEDS ORDERED: BUPIVACAINE HCL PF 0.25% 10 ML VIAL ONE (23:45)
[2017-02-19] VITALS (24 sets, daily range): BP systolic 98–129; BP diastolic 46–91; PULSE 88–133; RESP 18; TEMP 98.4–98.8
[2017-02-19] MEDS ORDERED: ZOLPIDEM TARTRATE 5 MG TAB PO PRN (02:00)
[2017-02-19] MEDS ORDERED: ONDANSETRON ODT 4 MG TAB PO PRN (02:00)
[2017-02-19] MEDS ORDERED: BENZOCAINE 20% TOPICAL SPRAY 60 ML CAN TOPICAL PRN (02:00)
[2017-02-19] MEDS ORDERED: WITCH HAZEL 50%/GLYCERIN 12.5% 40 PAD JAR TOPICAL PRN (02:00)
[2017-02-19] MEDS ORDERED: DOCUSATE SODIUM 50 MG/SENNA 8.6 MG TAB PO PRN (02:00)
[2017-02-19] MEDS ORDERED: ALUMINUM/MAGNESIUM/SIMETH 30 ML CUP PO PRN (02:00)
[2017-02-19] MEDS ORDERED: SODIUM CHLORIDE 0.9% FLUSH 10 ML FLUSH IV FLUSH PRN (02:00)
[2017-02-19] MEDS ORDERED: oxyCODONE/ACETAMINOPHEN 5 MG/325 MG TAB PO PRN ×2 (02:00)
--- NOTE | 2017-02-19 02:03 | PD.OB.DELI ---
Anesthesia: Epidural Episiotomy: None Vaginal Delivery: Normal, Spontaneous Presentation: Occiput anterior Nuchal Cord: None Delayed cord clamping (45 sec): No Infant: Female One Minute : 8 Five Minute : 9 Placenta: Spontaneous delivery, Intact, 3 vessel cord Laceration: 1 deg Repair: Chromic running Additional Information Patient delivered a viable female fetus via . Dr. Mujica attending, Dr. Naik assisted. 7lb 6oz 8/9 Placenta delivered intact, 3 vessel Fundal massage and Pitocin 1st degree perineal laceration at 6 oclock repaired with 3-0 Vicryl running suture Mother and baby doing well, attended by delivery team (Charlotte Blakely MD R1) Collaborating MD Comments Patient was delivered under direct supervision. Normal without complications. (Justine Mujica MD) Charlotte Blakely MD R1 Feb 19, 2017 02:03 Justine Mujica MD Feb 19, 2017 08:10
--- NOTE | 2017-02-19 07:04 | HHI.OB ---
Subjective Post Day: 0 Remarks day # 0. AFVSS. Patient reports she has moderate vaginal bleeding at this time. She is status post delivery at approximately 0128 today. Denies dysuria. No breast tenderness. Baby is latching well to the breast but she worries she is not producing enough milk yet. No nausea or vomiting. Ambulating so far without difficulty. Denies calf pain or shortness of breath. (Charlotte Blakely MD R1) Objective Vitals/I&O Vital Signs Date Time Temp Pulse Resp B/P Pulse Ox O2 Delivery O2 Flow Rate FiO2 02/19/17 05:15 98.5 95 18 114/54 02/19/17 04:15 18 02/19/17 04:00 88 122/61 02/19/17 03:45 18 02/19/17 03:30 89 112/63 02/19/17 03:15 18 02/19/17 03:00 122 117/91 02/19/17 02:45 18 02/19/17 02:30 97 116/59 02/19/17 02:30 98 18 112/66 02/19/17 02:15 18 02/19/17 02:00 92 117/60 02/19/17 01:45 98.4 18 02/19/17 01:44 103 129/78 02/19/17 00:40 107 02/19/17 00:35 119 02/19/17 00:30 100 120/62 02/19/17 00:30 116 02/19/17 00:25 115 02/19/17 00:20 95 02/19/17 00:15 98 02/19/17 00:10 133 02/19/17 00:05 97 02/19/17 00:00 109 02/19/17 00:00 100 114/75 02/18/17 23:58 121 126/56 02/18/17 23:55 81 02/18/17 23:54 78 120/58 02/18/17 23:52 112 76/35 02/18/17 23:50 90 02/18/17 23:45 80 02/18/17 23:40 87 02/18/17 23:35 88 02/18/17 23:30 84 02/18/17 23:30 82 124/49 02/18/17 23:25 98 02/18/17 23:20 84 02/18/17 23:15 90 02/18/17 23:10 99 02/18/17 23:05 94 02/18/17 23:00 89 02/18/17 23:00 97 118/70 02/18/17 22:55 92 02/18/17 22:50 91 02/18/17 22:45 88 02/18/17 22:40 84 02/18/17 22:35 90 02/18/17 22:30 83 133/77 02/18/17 22:30 96 02/18/17 22:20 87 02/18/17 22:15 94 02/18/17 22:10 100 02/18/17 22:00 115 128/69 02/18/17 22:00 164 02/18/17 21:55 131 02/18/17 21:50 97 02/18/17 21:45 76 02/18/17 21:40 79 02/18/17 21:35 78 02/18/17 21:30 75 02/18/17 21:30 81 114/55 02/18/17 21:25 81 02/18/17 21:20 78 02/18/17 21:15 78 02/18/17 21:10 80 02/18/17 21:05 86 02/18/17 21:00 83 119/71 02/18/17 21:00 86 02/18/17 20:55 83 02/18/17 20:50 105 02/18/17 20:45 84 02/18/17 20:40 84 02/18/17 20:35 77 02/18/17 20:30 81 02/18/17 20:30 85 122/65 02/18/17 20:25 86 02/18/17 20:20 85 02/18/17 20:15 86 02/18/17 20:15 18 02/18/17 20:10 84 02/18/17 20:05 82 02/18/17 20:00 84 02/18/17 20:00 86 118/74 02/18/17 19:55 83 02/18/17 19:50 84 02/18/17 19:45 87 02/18/17 19:45 98.0 18 02/18/17 19:40 99 02/18/17 19:35 86 02/18/17 19:30 80 02/18/17 19:30 89 97/47 02/18/17 19:05 97 02/18/17 19:00 92 02/18/17 19:00 88 108/52 02/18/17 18:55 82 02/18/17 18:50 86 02/18/17 18:45 90 02/18/17 18:40 104 02/18/17 18:35 96 02/18/17 18:35 113 124/62 02/18/17 18:30 92 131/78 02/18/17 18:30 94 02/18/17 18:25 89 119/72 02/18/17 18:25 90 02/18/17 18:20 87 128/75 02/18/17 18:20 90 02/18/17 18:15 104 116/76 02/18/17 18:15 104 02/18/17 18:10 93 02/18/17 18:10 122/67 02/18/17 18:10 100 02/18/17 18:05 85 02/18/17 18:05 118/65 02/18/17 18:05 86 02/18/17 18:00 95 119/71 02/18/17 18:00 89 02/18/17 17:56 80 133/65 02/18/17 17:55 100 02/18/17 17:52 102 144/85 02/18/17 17:50 99 02/18/17 17:50 103 131/67 02/18/17 17:45 110 02/18/17 17:33 20 02/18/17 17:32 96 124/67 02/18/17 17:30 102 02/18/17 16:58 98.8 24 02/18/17 16:57 97 140/69 02/18/17 16:55 111 02/18/17 16:50 113 02/18/17 15:30 24 02/18/17 12:30 20 02/18/17 12:15 92 122/58 02/18/17 12:14 98.0 02/18/17 10:56 98.3 18 02/18/17 10:55 105 113/63 Objective Remarks GENERAL: Well-nourished, well-developed female in no apparent distress. CARDIOVASCULAR: Regular rate and rhythm without murmurs, gallops, or rubs. RESPIRATORY: Breath sounds equal bilaterally. No accessory muscle use. ABDOMEN/GI: Abdomen soft, non-tender. Fundus: Firm, non-tender. At umbilicus. GENITOURINARY: Moderate vaginal bleeding noted. EXTREMITIES: No cyanosis or edema, non-tender, without signs of DVT. Medications and IVs Current Medications Medications (Trade) Dose Ordered Sig/Olivia Route Start Time Stop Time Status Last Admin (Tylenol) 650 mg Q6H PRN PO 02/18/17 22:30 (NS Flush) 2 ml BID IV FLUSH 02/19/17 09:00 (NS Flush) 2 ml UNSCH PRN IV FLUSH 02/19/17 02:00 (Tylenol) 650 mg Q4H PRN PO 02/19/17 02:00 (Motrin) 600 mg Q6H PRN PO 02/19/17 02:00 (Percocet 5-325 Mg) 1 tab Q4H PRN PO 02/19/17 02:00 (Percocet 5-325 Mg) 2 tab Q4H PRN PO 02/19/17 02:00 (Americaine 20% Top Spr) 1 spray Q4H PRN TOPICAL 02/19/17 02:00 (Tucks Pads) 1 applic QID PRN TOPICAL 02/19/17 02:00 (Jessica-Colace) 2 tab Q12H PRN PO 02/19/17 02:00 (Ambien) 5 mg HS PRN PO 02/19/17 02:00 (M-M-R Ii Inj) 0.5 ml ONCE ONCE SQ 02/19/17 16:00 02/19/17 16:01 (Boostrix Inj) 0.5 ml ONCE ONCE IM 02/19/17 16:00 02/19/17 16:01 (Mag-Al Plus Susp Liq) 15 ml Q8H PRN PO 02/19/17 02:00 (Zofran Odt) 4 mg Q6H PRN PO 02/19/17 02:00 (Charlotte Blakely MD R1) Assessment/Plan Problem List: (1) Normal vaginal delivery Assessment and Plan PMH: Hx of polysubstance abuse with admission 12/2015. UDS obtained. 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 Reports sz like activity with anxiety. No anti-epileptic medications. Anxiety d/o 21 y/o female who is PPD# 0 s/p after IOL. -Continue routine care. -Percocet and Motrin PRN pain. -Encouraged OOB. Advised pelvic rest for 6 wks. -Per control not yet discussed. -Anticipate discharge 1-[address] Mujica (Charlotte Blakely MD R1) Collaborating MD Comments Discussed care with resident. Will need social science teacher consult due to significant history of polysubstance abuse and anxiety. (Justine Mujica MD) Charlotte Blakely MD R1 Feb 19, 2017 07:04 Justine Mujica MD Feb 19, 2017 08:17
[2017-02-19] MEDS ORDERED: SODIUM CHLORIDE 0.9% FLUSH 10 ML FLUSH IV FLUSH SCH (09:00)
[2017-02-19] MEDS ORDERED: METHYLERGONOVINE MALEATE 0.2 MG/ML VIAL IM ONE (10:30)
[2017-02-19] MEDS: IBUPROFEN 600 MG TAB PO PRN ×2 (10:44→18:18)
[2017-02-19] MEDS: ACETAMINOPHEN 325 MG TAB PO PRN (11:49)
--- NOTE | 2017-02-19 13:40 | PD.CONS ---
Provisional Diagnosis Admission Date Feb 18, 2017 at 00:01 [place]. Adjustment disorder History of Present Illness Service Psychiatry Consult Requested By Dr. Russ Primary Care Physician No Primary Care Physician HPI Patient recently gave . Has a history of losing a child to SIDS. Consulting physician was concerned about a mood disorder. Patient interviewed and has no symptoms of a mood disorder at this time. Review of Systems ROS Limitations: Clinical Condition Past Family Social History Coded Allergies: Bees (Verified Allergy, Severe, anaphylaxis, 02/18/17) epi pen needed but does not have Coconut (Verified Allergy, Severe, anaphylaxis, 02/18/17) epi pen needed if large amount ingested Latex (Unverified Allergy, Severe, skin irritation, 02/18/17) Adhesives (Verified Allergy, Intermediate, skin irritation, 02/18/17) Cat Dander (Verified Allergy, Intermediate, sneezing, congestion, 02/18/17) Dilaudid (Verified Adverse Reaction, Severe, vomiting, 02/18/17) Active Scripts Ranitidine 150 Mg [id number] Mg PO BID #60 TAB Ref 3 Prov:Cece Acharya 01/31/17 Reported Medications Promethazine (Phenergan)25 Mg Tab25 Mg PO Q6H PRN (Nausea/Vomiting) Ref 0 02/18/17 W/O Vit A W/ Fe Fumar (Citranatal Orange)27-1-260 Mg Cap1 Cap PO DAILY #30 CAP Ref 0 09/07/16 Discontinued Scripts Ondansetron (Zofran)4 Mg Tab4 Mg PO Q8HR PRN (NAUSEA OR VOMITING) #30 TAB Ref 0 Prov:Cece Acharya 01/17/17 Ondansetron Odt (Zofran Odt)8 Mg Tab8 Mg SL Q8H PRN (NAUSEA OR VOMITING) #15 TAB Ref 0 Prov:Kyle Fagan MD R1 01/12/17 Epinephrine Inj (Epipen 2-Sal Inj)0.3 Mg/0.3 Ml Pfpen0.3 Mg IM ONCE PRN ( ALLERGIC REACTION) #1 PACK Ref 0 Prov:Cece Acharya 10/05/16 Current Medications Medications (Trade) Dose Ordered Sig/Olivia Route Start Time Stop Time Status Last Admin (Tylenol) 650 mg Q6H PRN PO 02/18/17 22:30 (NS Flush) 2 ml BID IV FLUSH 02/19/17 09:00 (NS Flush) 2 ml UNSCH PRN IV FLUSH 02/19/17 02:00 (Tylenol) 650 mg Q4H PRN PO 02/19/17 02:00 02/19/17 11:49 (Motrin) 600 mg Q6H PRN PO 02/19/17 02:00 02/19/17 10:44 (Percocet 5-325 Mg) 1 tab Q4H PRN PO 02/19/17 02:00 (Percocet 5-325 Mg) 2 tab Q4H PRN PO 02/19/17 02:00 (Americaine 20% Top Spr) 1 spray Q4H PRN TOPICAL 02/19/17 02:00 (Tucks Pads) 1 applic QID PRN TOPICAL 02/19/17 02:00 (Jessica-Colace) 2 tab Q12H PRN PO 02/19/17 02:00 (Ambien) 5 mg HS PRN PO 02/19/17 02:00 (M-M-R Ii Inj) 0.5 ml ONCE ONCE SQ 02/19/17 16:00 02/19/17 16:01 (Boostrix Inj) 0.5 ml ONCE ONCE IM 02/19/17 16:00 02/19/17 16:01 (Mag-Al Plus Susp Liq) 15 ml Q8H PRN PO 02/19/17 02:00 (Zofran Odt) 4 mg Q6H PRN PO 02/19/17 02:00 Family History Positive for mood disorders. Social History 21-year-old who is known to this physician from previous treatment at [facility]. Not currently on drugs or alcohol. Glad to have a new baby. Patient's Strengths (min. 2) Verbal and resilient. Physical Exam Vital Signs Vital Signs Date Time Temp Pulse Resp B/P Pulse Ox O2 Delivery O2 Flow Rate FiO2 02/19/17 09:53 96 18 123/76 02/19/17 07:40 98.8 Mental Status Examination Speech: Unremarkable Orientation: x3 Memory: Unremarkable Thought Process: Organized, Goal Directed Thought Content: Unremarkable Hallucination Type: None Attention and Concentration: Good Suicidal Ideation: No Previous Suicide Attempts: No Homicidal Ideation: No Previous Homicide Attempts: No Insight: Fair Judgment: WNL Affect: Good Mood: Appropriate Motor Activity: Normal gait Assessment & Plan Problem List: (1) Adjustment disorder with anxiety ICD Code: F43.22 Assessment & Plan Estimated LOS: days no medications or other recommendations at this time. Sameer Rowe MD Feb 19, 2017 13:40
[2017-02-19] MEDS ORDERED: DIPHTH/TETANUS/ACEL PERTUSSIS (BOOSTER) 0.5 ML VIAL/PFS IM ONE (16:00)
[2017-02-19] MEDS ORDERED: MEASLES, MUMPS, RUBELLA VACCINE 0.5 ML VIAL SQ ONE (16:00)
[2017-02-20] MEDS: IBUPROFEN 600 MG TAB PO PRN ×3 (03:05→17:01)
[2017-02-20] MEDS: ACETAMINOPHEN 325 MG TAB PO PRN ×3 (03:06→20:54)
[2017-02-20] MEDS ORDERED: SENN1TAB PO (07:51)
[2017-02-20] MEDS ORDERED: IBUP-232 PO (07:51)
--- NOTE | 2017-02-20 07:52 | HHI.DCPOC ---
Discharge Care Plan Diagnosis: (1) (2) Normal vaginal delivery (3) UNSPECIFIED EPISODIC MOOD DISORDER Report Symptoms to Your Doctor -Temperate above 100.5 degrees -Redness, of incision or excessive or foul smelling drainage -Unusual pain or calf pain -Increased vaginal bleeding -Painful or difficulty urinating -Feelings of extreme sadness or anxiety after 2 weeks Goals to Promote Your Health * To prevent worsening of your condition and complications * To maintain your health at the optimal level Directions to Meet Your Goals Take your medications as prescribed Follow your dietary instruction Follow activity as directed Ensure plenty of rest for recovery Drink fluids for hydration Keep your appointments as scheduled Take your immunizations and boosters as scheduled If your symptoms worsen call your PCP, if no PCP go to Urgent Care Center or Emergency Room Smoking is Dangerous to Your Health. Avoid second hand smoke Call the 24-hour crisis hotline for domestic abuse at Jacob Ga MD R2 Feb 20, 2017 07:52
[2017-02-20 08:15] VITALS: BP 110/68; PULSE 65; RESP 18; TEMP 98.1
--- NOTE | 2017-02-20 09:03 | HHI.OB ---
Subjective Post Day: 2 Remarks Patient doing well. Some localized pain over lower back around epidural site. Moving all ext without difficulty, urinating without difficulty, and ambulating. She is tolerating whole meals. She is breast-feeding without difficulty. Her vaginal bleeding has reduced over the past 2 days, and is now less than her normal menstruation. She denies any clots. She denies any pain behind her legs, shortness of breath, or chest pain. Objective Vitals/I&O Vital Signs Date Time Temp Pulse Resp B/P Pulse Ox O2 Delivery O2 Flow Rate FiO2 02/20/17 08:15 98.1 65 18 110/68 02/19/17 09:53 96 18 123/76 Objective Remarks GENERAL: Well-nourished, well-developed female in no apparent distress. CARDIOVASCULAR: Regular rate and rhythm without murmurs, gallops, or rubs. RESPIRATORY: Breath sounds equal bilaterally. No accessory muscle use. ABDOMEN/GI: Abdomen soft, non-tender. Fundus: Firm, non-tender. At umbilicus. GENITOURINARY: Moderate vaginal bleeding noted. EXTREMITIES: No cyanosis or edema, non-tender, without signs of DVT. Medications and IVs Current Medications Medications (Trade) Dose Ordered Sig/Olivia Route Start Time Stop Time Status Last Admin (Tylenol) 650 mg Q6H PRN PO 02/18/17 22:30 (NS Flush) 2 ml BID IV FLUSH 02/19/17 09:00 (NS Flush) 2 ml UNSCH PRN IV FLUSH 02/19/17 02:00 (Tylenol) 650 mg Q4H PRN PO 02/19/17 02:00 02/20/17 03:06 (Motrin) 600 mg Q6H PRN PO 02/19/17 02:00 02/20/17 08:59 (Percocet 5-325 Mg) 1 tab Q4H PRN PO 02/19/17 02:00 (Percocet 5-325 Mg) 2 tab Q4H PRN PO 02/19/17 02:00 (Americaine 20% Top Spr) 1 spray Q4H PRN TOPICAL 02/19/17 02:00 02/19/17 18:18 (Tucks Pads) 1 applic QID PRN TOPICAL 02/19/17 02:00 02/19/17 18:18 (Jessica-Colace) 2 tab Q12H PRN PO 02/19/17 02:00 02/19/17 23:13 (Ambien) 5 mg HS PRN PO 02/19/17 02:00 (Mag-Al Plus Susp Liq) 15 ml Q8H PRN PO 02/19/17 02:00 (Zofran Odt) 4 mg Q6H PRN PO 02/19/17 02:00 Assessment/Plan Problem List: (1) Normal vaginal delivery Assessment and Plan PMH: Hx of polysubstance abuse with admission 12/2015. UDS obtained. 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 Reports sz like activity with anxiety. No anti-epileptic medications. Anxiety d/o 21 y/o female who is PPD# 2 s/p after IOL. -Continue routine care. -Percocet and Motrin PRN pain. -Encouraged OOB. Advised pelvic rest for 6 wks. -Discharge home today with follow-up with PCP in one week. molina Tatum. Jacob Ga MD R2 Feb 20, 2017 09:03
[2017-02-20 19:38] VITALS: BP 129/58; PULSE 80; RESP 16; TEMP 98.5; O2SAT 99
[2017-02-21 04:15] VITALS: BP 126/66; PULSE 90; RESP 18; TEMP 98.6
[2017-02-21 07:45] VITALS: BP 113/74; PULSE 91; RESP 16; TEMP 98.8
--- NOTE | 2017-02-21 10:11 | HHI.OB ---
Subjective Post Day: 3 Remarks Ms. Hernandez was afebrile with stable VS overnight. Patient doing well; she reports some bilateral breast pain when infant crying and back pain from epidural site but otherwise states she is doing well. Patient ambulating normally. Patient bottle feeding. Light/moderate vaginal bleeding. No shortness of breath, chest pain, or leg swelling. Patient passing gas normally. Objective Vitals/I&O Vital Signs Date Time Temp Pulse Resp B/P Pulse Ox O2 Delivery O2 Flow Rate FiO2 02/21/17 07:45 113/74 02/21/17 07:45 98.8 91 16 02/21/17 04:15 98.6 90 18 126/66 02/20/17 21:54 18 02/20/17 19:38 98.5 16 99 02/20/17 19:38 80 129/58 02/20/17 18:36 18 02/20/17 10:15 16 Objective Remarks GENERAL: Well-nourished, well-developed female in no apparent distress. CARDIOVASCULAR: Regular rate and rhythm without murmurs. Normal perfusion RESPIRATORY: CTAb, normal rate ABDOMEN/GI: Abdomen soft, non-tender. Fundus: Firm, non-tender. At umbilicus. GENITOURINARY: Moderate vaginal bleeding noted. EXTREMITIES: No cyanosis or edema, non-tender, without signs of DVT. Medications and IVs Current Medications Medications (Trade) Dose Ordered Sig/Olivia Route Start Time Stop Time Status Last Admin (Tylenol) 650 mg Q6H PRN PO 02/18/17 22:30 (NS Flush) 2 ml BID IV FLUSH 02/19/17 09:00 (NS Flush) 2 ml UNSCH PRN IV FLUSH 02/19/17 02:00 (Tylenol) 650 mg Q4H PRN PO 02/19/17 02:00 02/20/17 20:54 (Motrin) 600 mg Q6H PRN PO 02/19/17 02:00 02/20/17 17:01 (Percocet 5-325 Mg) 1 tab Q4H PRN PO 02/19/17 02:00 (Percocet 5-325 Mg) 2 tab Q4H PRN PO 02/19/17 02:00 (Americaine 20% Top Spr) 1 spray Q4H PRN TOPICAL 02/19/17 02:00 02/19/17 18:18 (Tucks Pads) 1 applic QID PRN TOPICAL 02/19/17 02:00 02/19/17 18:18 (Jessica-Colace) 2 tab Q12H PRN PO 02/19/17 02:00 02/19/17 23:13 (Ambien) 5 mg HS PRN PO 02/19/17 02:00 (Mag-Al Plus Susp Liq) 15 ml Q8H PRN PO 02/19/17 02:00 (Zofran Odt) 4 mg Q6H PRN PO 02/19/17 02:00 Assessment/Plan Problem List: (1) Normal vaginal delivery Assessment and Plan 21 y/o female who is PPD# 3 s/p after IOL. -Continue routine care. -Percocet and Motrin PRN pain. -Encouraged OOB. Advised pelvic rest for 6 wks. -Discharge home today with follow-up with PCP in one week. Mood/anxiety disorder Impression: Initial concern for mood lability/risk for PPD -Seen by Psychiatry consultation Discharge Planning Anticipate discharge today Vickey Matute MD R2 Feb 21, 2017 10:11
[2017-02-21] MEDS: ACETAMINOPHEN 325 MG TAB PO PRN (10:27)
[2017-02-21] MEDS: IBUPROFEN 600 MG TAB PO PRN (10:28)
[2017-02-23 10:44] LABS: OBMETHADONE UR NEG (NEG); PHENCYCLIDINE URINE NEG (NEG)
[2017-02-23 10:45] LABS: BATH SALTS (MDPV) UR NEG (NEG); ECSTASY (MDMA) UR NEG (NEG); HEROIN (6-ACETYLMORPHINE) UR NEG (NEG); K2 SPICE UR NEG (NEG); OXYCODONE (PERCODAN) NEG (NEG)
[2017-02-23 10:46] LABS: GABAPENTIN UR NEG (NEG); HYDROMORPHONE U NEG (NEG)
== END 2017-02-21 11:30 | disposition home or self-care (01) | DRG 775 ==
LOC: H2EA 23:56 → UNDOADMIN 23:56 → H2EA 02-18 00:01 → H1EA 02-19 04:29
PROVIDERS: ADMIT Obstetrics & Gynecology; ATTEND Obstetrics & Gynecology
PROC: 3E0P7GC Introduction of Other Therapeutic Substance into Female Reproductive, Via Natural or Artificial Opening (ICD-10-PCS; 2017-02-18)
PROC: 10907ZC Drainage of Amniotic Fluid, Therapeutic from Products of Conception, Via Natural or Artificial Opening (ICD-10-PCS; 2017-02-18)
PROC: 00HU33Z Insertion of Infusion Device into Spinal Canal, Percutaneous Approach (ICD-10-PCS; 2017-02-18)
PROC: 3E0R3CZ (ICD-10-PCS; 2017-02-18)
PROC: 10E0XZZ Delivery of Products of Conception, External Approach (ICD-10-PCS; principal; 2017-02-19)
PROC: 0HQ9XZZ Repair Perineum Skin, External Approach (ICD-10-PCS; 2017-02-19)
DX: O99.824 Streptococcus B carrier state complicating childbirth (principal); O99.344 Other mental disorders complicating childbirth; F43.22 Adjustment disorder with anxiety; O70.0 First degree perineal laceration during delivery; F17.210 Nicotine dependence, cigarettes, uncomplicated; J45.909 Unspecified asthma, uncomplicated; Z37.0 Single live birth; Z3A.39 39 weeks gestation of pregnancy; O99.334 Smoking (tobacco) complicating childbirth; Z86.69 Personal history of other diseases of the nervous system and sense organs; Z88.5 Allergy status to narcotic agent; Z91.040 Latex allergy status
CPT/HCPCS: 80053; 80307; 80348; 81001; 82948; 84550; 85025; 85027; 86900; 86901; 90715; 99284; G0480; G0481; J2210; J2540; J3010; J7120

== ENCOUNTER 2017-05-29 21:49 | Emergency (ER) | payer MEDICAID ==
[~2017-05-29] VITALS: Ht 165.1 cm; Wt 95.5 kg
[~2017-05-29 21:49] MED LIST changes: -EPIP0.3I IM; +IBUP-232 PO; -PREN1CAP7 PO; +SENN1TAB PO; -ZOFR4TAB PO; -ZOFR8TAB4 SL
[2017-05-29 21:51] VITALS: BP 136/102; PULSE 98; RESP 16; TEMP 99.5; O2SAT 98
--- NOTE | 2017-05-29 22:47 | PD ---
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 Patient states she had a vaginal delivery 3 months ago. She has had 2 menstrual cycle since then, her last one ending 2 weeks ago. She began spotting today with some mild abdominal cramping. Denies any fever or chills. No other vaginal discharge. No urinary symptoms. No nausea or vomiting. Patient is concerned that she may be as she has been having a protective intercourse and her last was found with an irregular menses. She has no other symptoms to report at this time. PFSH Past Medical History ADD: No (DENIES) ADHD: No (DENIES) Asthma: Yes Anxiety: Yes Cancer: No Diabetes: No Diminished Hearing: No Psychiatric: Yes (HX ADHD, ADD) Immunizations Current: Yes Migraines: No Seizures: Yes (epilepsy) Thyroid Disease: No Ulcer: No ?: Unknown Menopausal: No : 2 Para: 1 Miscarriage: 1 Past Surgical History Appendectomy: No Cholecystectomy: Yes Tonsillectomy: Yes Social History Alcohol Use: No Tobacco Use: Yes Substance Use: No Allergies-Medications (Allergen,Severity, Reaction): Coded Allergies: Bees (Verified Allergy, Severe, anaphylaxis, 02/18/17) epi pen needed but does not have Coconut (Verified Allergy, Severe, anaphylaxis, 02/18/17) epi pen needed if large amount ingested Latex (Unverified Allergy, Severe, skin irritation, 02/18/17) Adhesives (Verified Allergy, Intermediate, skin irritation, 02/18/17) Cat Dander (Verified Allergy, Intermediate, sneezing, congestion, 02/18/17) Dilaudid (Verified Adverse Reaction, Severe, vomiting, 02/18/17) Reported Meds & Prescriptions Reported Meds & Active Scripts Active Senna Plus 8.6-50 mg (Sennosides-Docusate Sodium) 1 Tab Tab 2 Tab PO Q12H PRN Ibuprofen 600 Mg Tab 600 Mg PO Q6H PRN Ranitidine (Ranitidine HCl) 150 Mg Tab 150 Mg PO BID Review of Systems Except as stated in HPI: all other systems reviewed are Neg Physical Exam Narrative GENERAL: Well-nourished, well-developed male patient in no acute distress SKIN: Focused skin assessment warm/dry. HEAD: Normocephalic. EYES: No scleral icterus. No injection or drainage. NECK: Supple, trachea midline. No JVD or lymphadenopathy. CARDIOVASCULAR: Regular rate and rhythm without murmurs, gallops, or rubs. RESPIRATORY: Breath sounds equal bilaterally. No accessory muscle use. GASTROINTESTINAL: Abdomen soft, non-tender, nondistended. No guarding. No rebound tenderness GENITOURINARY: Normal external genitalia without lesions or erythema. Vaginal vault without blood or drainage. Cervical os was then a fingertip with some brown red drainage. No cervical motion tenderness. Uterus nontender and nonenlarged. Bilateral adnexa nontender without masses. MUSCULOSKELETAL: No cyanosis, or edema. BACK: Nontender without obvious deformity. No CVA tenderness. Data Data Last Documented VS Vital Signs Date Time Temp Pulse Resp B/P Pulse Ox O2 Delivery O2 Flow Rate FiO2 05/29/17 21:51 99.5 98 16 136/102 98 Room Air Orders Urinalysis - C+S If Indicated (05/29/17 23:02) Ed Urine Pregnancytest Poc (05/29/17 23:02) Wet Prep Profile (05/29/17 23:02) Gc And Chlamydia Pcr (05/29/17 23:02) Labs Laboratory Tests Test 05/29/17 05/29/17 23:05 23:15 Urine Color LIGHT-YELLOW Urine Turbidity CLEAR Urine pH 6.5 Urine Specific [place] 1.010 Urine Protein NEG mg/dL Urine Glucose (UA) NEG mg/dL Urine Ketones NEG mg/dL Urine Occult Blood TRACE Urine Nitrite NEG Urine Bilirubin NEG Urine Urobilinogen LESS THAN 2.0 MG/DL Urine Leukocyte Esterase NEG Urine RBC 2 /hpf Urine WBC 1 /hpf Urine Squamous Epithelial <1 /hpf Cells Microscopic Urinalysis Comment CULT NOT INDICATED Chlamydia trachomatis DNA NOT DETECTED (PCR) Neisseria gonorrhoeae DNA NOT DETECTED (PCR) Clue Cells (Wet Prep) PRESENT Vaginal Trichomonas (Wet Prep) NONE SEEN Vaginal Yeast (Wet Prep) NONE SEEN MDM Medical Decision Making Medical Screen Exam Complete: Yes Emergency Medical Condition: Yes Medical Record Reviewed: Yes Differential Diagnosis Vaginal bleeding versus disease versus versus threatened versus STD Narrative Course 21-year-old female presents to emergency department for evaluation of vaginal spotting 2 weeks after her last menses. Patient appears without distress. She has cervix is open and finger tip with a small amount of brown red drainage noted. Otherwise exam is without acute concern. Patient states she is unable to stay for results and requests a call. Patient is not acutely ill and I feel that this is appropriate. 0600 patients wet prep came back with clue cells. Note is left with charge nurse to call in prescription for Flagyl. Diagnosis Primary Impression: Vaginal bleeding between periods Additional Impression: BV (bacterial vaginosis) Referrals: Cece Acharya Primary Care Physician Patient Instructions: Dysmenorrhea (ED), General Instructions Additional Instructions: Follow-up with your MEDICAL TRANSCRIPTION Return immediately with any acute worsening of symptoms Med/Other Pt SpecificInfo: No Change to Meds Disposition: 01 DISCHARGE HOME Condition: Stable Keisha Garcia May 29, 2017 22:46
[2017-05-29 23:35] LABS: BLOOD, URINE TRACE (NEG); GLUCOSE,URINE NEG (NEG); KETONE, URINE NEG (NEG); NITRITE,URINE NEG (NEG); PH, URINE 6.5 (5.0-8.5); SQUAMOUS EPITHELIAL CELL URINE <1 /hpf (0-5); URINE COLOR LIGHT-YELLOW (YELLW/STRAW)
[2017-05-29 23:42] LABS: COMMENT (UR) CULT NOT INDICATED; CULTURE IF INDICATED CULT NOT INDICATED
[2017-05-30 01:49] LABS: CHLAMYDIA PCR NOT DETECTED (NOT DETECT); NEISSERIA PCR NOT DETECTED (NOT DETECT)
== END 2017-05-29 23:35 | disposition home or self-care (01) ==
LOC: NEPD 21:49
DX: N92.6 Irregular menstruation, unspecified (principal); N76.0 Acute vaginitis
CPT/HCPCS: 81001; 84703; 87210; 87491; 87591; 99283

== ENCOUNTER 2017-06-21 00:38 | Emergency (ER) | payer MEDICAID ==
[~2017-06-21] VITALS: Ht 165.1 cm; Wt 91.0 kg
[2017-06-21 00:44] VITALS: BP 130/67; PULSE 129; RESP 18; TEMP 99; O2SAT 98
[2017-06-21] MEDS ORDERED: SODIUM CHLOR 0.9% 1000 ML INJ 1,000 ML IV ONE (00:44)
[2017-06-21] MEDS ORDERED: SODIUM CHLORIDE 0.9% FLUSH 10 ML FLUSH IVF PRN (00:45)
[2017-06-21] MEDS ORDERED: FOSPHENYTOIN INJ 1,000 MGPE in SODIUM CHLORIDE 0.9% INJ 50 ML IV ONE (01:00)
[2017-06-21 01:11] LABS: AUTOMATED NEUTROPHIL # 10.6 TH/MM3 (1.8-7.7); BASOPHIL # 0.1 TH/MM3 (0-0.2); BASOPHIL % 0.6 % (0.0-2.0); EOSINOPHIL # 0.3 TH/MM3 (0-0.4); EOSINOPHIL % 1.9 % (0.0-4.0); HEMATOCRIT 40.4 % (35.0-46.0); HEMO FLAGS DIFF FINAL; LYMPH % 17.2 % (9.0-44.0); LYMPHOCYTE # 2.4 TH/MM3 (1.0-4.8); MEAN CELL VOLUME 84.5 FL (80.0-100.0); MEAN CORPUSCULAR HEMOGLOBIN 28.6 PG (27.0-34.0); MEAN CORPUSCULAR HGB CONC 33.9 % (32.0-36.0); MONO % 5.7 % (0.0-8.0); NEUT % 74.6 % (16.0-70.0); PLATELET COUNT 233 TH/MM3 (150-450); RED BLOOD COUNT 4.78 MIL/MM3 (4.00-5.30); RED CELL DISTRIBUTION WIDTH 14.7 % (11.6-17.2); WHITE BLOOD COUNT 14.2 TH/MM3 (4.0-11.0)
--- NOTE | 2017-06-21 01:27 | PD ---
HPI Chief Complaint: Seizure Time Seen by Provider: 00:44 Travel History International Travel<30 days: No Contact w/Intl Traveler<30days: No Traveled to known affect area: No History of Present Illness HPI The patient is a 21-year-old female who presents to the emergency department via EMS after a seizure. The patient has a history of seizures and was taken Dilantin and Trileptal. However, she was taken off of her medications when she became and did not restart them after secondary to breast-feeding. However, the patient recently stopped breast- feeding and is requesting to go on antiepileptics once again. The patient states she is unable to see a neurologist in the local area secondary to her insurance related issues. The patient had a full tonic-clonic seizure earlier tonight, states she bit the side of her mouth but denies any urinary incontinence. She denies any current headache, chest pain, shortness breath, nausea, vomiting, or abdominal pain. She denies any focal deficits. PFSH Past Medical History ADD: No (DENIES) ADHD: No (DENIES) Asthma: Yes Anxiety: Yes Cancer: No Cardiovascular Problems: Yes Diabetes: No Diminished Hearing: No Psychiatric: Yes (HX ADHD, ADD) Immunizations Current: Yes Migraines: No Seizures: Yes (epilepsy) Thyroid Disease: No Ulcer: No Tetanus Vaccination: < 5 Years Influenza Vaccination: No ?: Not LMP: 05/14/2017 Menopausal: No : 2 Para: 1 Miscarriage: 1 Past Surgical History Appendectomy: No Cholecystectomy: Yes Tonsillectomy: Yes Social History Alcohol Use: No Tobacco Use: Yes (1/2 PPD) Substance Use: No Allergies-Medications (Allergen,Severity, Reaction): Coded Allergies: bee venom protein (honey bee) (Unverified Allergy, Severe, anaphylaxis, ) epi pen needed but does not have coconut (Unverified Allergy, Severe, anaphylaxis, 06/21/17) epi pen needed if large amount ingested latex (Unverified Allergy, Severe, skin irritation, 06/21/17) adhesive (Unverified Allergy, Intermediate, skin irritation, 06/21/17) cat dander (Unverified Allergy, Intermediate, sneezing, congestion, ) hydromorphone (Unverified Adverse Reaction, Severe, vomiting, 06/21/17) Reported Meds & Prescriptions Reported Meds & Active Scripts Active No Active Prescriptions or Reported Medications Review of Systems Except as stated in HPI: all other systems reviewed are Neg HENT: No: Lightheadedness Cardiovascular: No: Chest Pain or Discomfort Respiratory: No: Shortness of Breath Gastrointestinal: No: Nausea, Vomiting, Abdominal Pain Genitourinary: No: Incontinence Neurologic: Positive: Seizures, No: Dizziness, Headache Physical Exam Narrative GENERAL: Awake, alert, pleasant 21-year-old female who appears her stated age and is in no acute respiratory distress. SKIN: Focused skin assessment warm/dry. HEAD: Atraumatic. Normocephalic. EYES: Pupils equal and round. Pupils are 4 mm bilateral and reactive. ENT: No nasal bleeding or discharge. Mucous membranes pink and moist. No visible tongue trauma noted. NECK: Trachea midline. No JVD. CARDIOVASCULAR: Regular, tachycardic with a heart rate of 120. RESPIRATORY: No accessory muscle use. Clear to auscultation. Breath sounds equal bilaterally. GASTROINTESTINAL: Abdomen soft, non-tender, nondistended. No rebound tenderness. MUSCULOSKELETAL: No obvious deformities. No clubbing. No cyanosis. No edema. NEUROLOGICAL: Awake and alert. No obvious cranial nerve deficits. Motor grossly within normal limits. Normal speech. Nonfocal. Oriented 4. Follows commands without difficulty. PSYCHIATRIC: Appropriate mood and affect; insight and judgment normal. Data Data Last Documented VS Vital Signs Date Time Temp Pulse Resp B/P (MAP) Pulse Ox O2 Delivery O2 Flow Rate FiO2 06/21/17 00:48 97 Room Air 06/21/17 00:44 99.0 129 18 130/67 (88) Orders Orders Complete Blood Count With Diff (06/21/17 00:44) Alcohol (Ethanol) (06/21/17 00:44) Phenytoin (Dilantin) (06/21/17 00:44) Blood Glucose (06/21/17 00:44) Ecg Monitoring (06/21/17 00:44) Iv Access Insert/Monitor (06/21/17 00:44) Oximetry (06/21/17 00:44) Comprehensive Metabolic Panel (06/21/17 00:44) Sodium Chlor 0.9% 1000 Ml Inj (Ns 1000 M (06/21/17 00:44) Sodium Chloride 0.9% Flush (Ns Flush) (06/21/17 00:45) Fosphenytoin Inj (Cerebyx Inj) (06/21/17 01:00) Labs Laboratory Tests Test 06/21/17 00:55 White Blood Count 14.2 TH/MM3 Red Blood Count 4.78 MIL/MM3 Hemoglobin 13.7 GM/DL Hematocrit 40.4 % Mean Corpuscular Volume 84.5 FL Mean Corpuscular Hemoglobin 28.6 PG Mean Corpuscular Hemoglobin Concent 33.9 % Red Cell Distribution Width 14.7 % Platelet Count 233 TH/MM3 Mean Platelet Volume 7.9 FL Neutrophils (%) (Auto) 74.6 % Lymphocytes (%) (Auto) 17.2 % Monocytes (%) (Auto) 5.7 % Eosinophils (%) (Auto) 1.9 % Basophils (%) (Auto) 0.6 % Neutrophils # (Auto) 10.6 TH/MM3 Lymphocytes # (Auto) 2.4 TH/MM3 Monocytes # (Auto) 0.8 TH/MM3 Eosinophils # (Auto) 0.3 TH/MM3 Basophils # (Auto) 0.1 TH/MM3 CBC Comment DIFF FINAL Differential Comment Blood Urea Nitrogen 6 MG/DL Creatinine 0.74 MG/DL Random Glucose 88 MG/DL Total Protein 7.5 GM/DL Albumin 3.8 GM/DL Calcium Level 8.7 MG/DL Alkaline Phosphatase 127 U/L Aspartate Amino Transf (AST/SGOT) 26 U/L Alanine Aminotransferase (ALT/SGPT) 32 U/L Total Bilirubin 0.5 MG/DL Sodium Level 139 MEQ/L Potassium Level 3.7 MEQ/L Chloride Level 106 MEQ/L Carbon Dioxide Level 23.1 MEQ/L Anion Gap 10 MEQ/L Estimat Glomerular Filtration Rate 101 ML/MIN Phenytoin (Dilantin) Level LESS THAN 0.4 MCG/ML Ethyl Alcohol Level LESS THAN 3 MG/DL MDM Medical Decision Making Medical Screen Exam Complete: Yes Emergency Medical Condition: Yes Medical Record Reviewed: Yes Interpretation(s) EKG reveals sinus tachycardia with a heart rate of 127. Q wave noted in lead 3 and aVF. Laboratory Tests Test 06/21/17 00:55 White Blood Count 14.2 TH/MM3 Red Blood Count 4.78 MIL/MM3 Hemoglobin 13.7 GM/DL Hematocrit 40.4 % Mean Corpuscular Volume 84.5 FL Mean Corpuscular Hemoglobin 28.6 PG Mean Corpuscular Hemoglobin Concent 33.9 % Red Cell Distribution Width 14.7 % Platelet Count 233 TH/MM3 Mean Platelet Volume 7.9 FL Neutrophils (%) (Auto) 74.6 % Lymphocytes (%) (Auto) 17.2 % Monocytes (%) (Auto) 5.7 % Eosinophils (%) (Auto) 1.9 % Basophils (%) (Auto) 0.6 % Neutrophils # (Auto) 10.6 TH/MM3 Lymphocytes # (Auto) 2.4 TH/MM3 Monocytes # (Auto) 0.8 TH/MM3 Eosinophils # (Auto) 0.3 TH/MM3 Basophils # (Auto) 0.1 TH/MM3 CBC Comment DIFF FINAL Differential Comment Blood Urea Nitrogen 6 MG/DL Creatinine 0.74 MG/DL Random Glucose 88 MG/DL Total Protein 7.5 GM/DL Albumin 3.8 GM/DL Calcium Level 8.7 MG/DL Alkaline Phosphatase 127 U/L Aspartate Amino Transf (AST/SGOT) 26 U/L Alanine Aminotransferase (ALT/SGPT) 32 U/L Total Bilirubin 0.5 MG/DL Sodium Level 139 MEQ/L Potassium Level 3.7 MEQ/L Chloride Level 106 MEQ/L Carbon Dioxide Level 23.1 MEQ/L Anion Gap 10 MEQ/L Estimat Glomerular Filtration Rate 101 ML/MIN Phenytoin (Dilantin) Level LESS THAN 0.4 MCG/ML Ethyl Alcohol Level LESS THAN 3 MG/DL Differential Diagnosis Differential diagnosis includes breakthrough seizure, noncompliance, hyponatremia, status epilepticus, subtherapeutic Dilantin level. Narrative Course IV was established, labs were drawn and sent, and the patient was placed on cardiac telemetry monitoring and continuous pulse oximetry monitoring. Dilantin level was sent to lab. The patient was administered Celebrex 1 g intravenously with IV fluids. EKG was ordered and interpreted. The patient left prior to completing treatment AGAINST MEDICAL ADVICE. The patient was advised she cannot drive until cleared by neurology. Diagnosis Primary Impression: Seizure Additional Impression: Noncompliance Patient Instructions: General Instructions Additional Instructions: Follow-up with neurologist. No driving until cleared by neurology. Return if symptoms worsen or progress. Scripts No Active Prescriptions or Reported Meds Disposition: 07 AGAINST MEDICAL ADVICE Condition: Stable Anil Salgado MD Jun 21, 2017 01:26
[2017-06-21 01:57] LABS: ALKALINE PHOSPHATASE 127 U/L (45-117); TOTAL BILIRUBIN ADULT 0.5 MG/DL (0.2-1.0)
[2017-06-21 02:02] LABS: ALCOHOL LESS THAN 3 MG/DL (0-5); ALT (GPT) 32 U/L (9-42); ANION GAP 10 MEQ/L (5-15); AST (GOT) 26 U/L (16-38); BICARBONATE 23.1 MEQ/L (21.0-32.0); BLOOD UREA NITROGEN 6 MG/DL (7-18); CHLORIDE 106 MEQ/L (98-107); GLOMERULAR FILTRATION RATE 101 ML/MIN (>89); POTASSIUM 3.7 MEQ/L (3.5-5.1); SODIUM (NA) 139 MEQ/L (136-145)
--- NOTE | 2017-06-21 14:12 | EKG ---
Date Performed: 06/21/2017 Time Performed: 00:58:35 PTAGE: 21 years EKG: SINUS TACHYCARDIA ABNORMAL RHYTHM ECG CANNOT EXCLUDE A PRIOR INFERIOR WALL MYOCARDIAL INFAR CTION BUT THAT IS LESS LIKELY AT THIS AGE Compared to PREVIOUS TRACING , the patient has developed more prominent Q-waves laterally and the sin us tachycardia is new. PREVIOUS TRACIN12/24/2015 01.14 DOCTOR: Mar Espinosa Interpretating Date/Time 06/21/2017 14:10:34
== END 2017-06-21 01:46 | disposition left against medical advice (07) ==
LOC: NEPE 00:38
DX: G40.909 Epilepsy, unspecified, not intractable, without status epilepticus (principal); J45.909 Unspecified asthma, uncomplicated; Z91.14 Patient's other noncompliance with medication regimen
CPT/HCPCS: 80053; 80185; 80307; 85025; 93005; 99284; J7030

== ENCOUNTER 2017-09-05 01:02 | Emergency (ER) | payer MEDICAID ==
[~2017-09-05] VITALS: Ht 165.1 cm; Wt 96.0 kg
[2017-09-05 01:15] VITALS: BP 131/85; PULSE 99; RESP 16; TEMP 99.1; O2SAT 99
[2017-09-05] MEDS ORDERED: levETIRAcetam 500 MG TAB PO ONE (02:00)
[2017-09-05] MEDS ORDERED: LORazepam 0.5 MG TAB PO ONE (02:00)
--- NOTE | 2017-09-05 02:11 | PD ---
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 and had to keep asking them to repeat the order sheet and went outside and felt as if she was dissociating from herself sat down and her [id number] works with her and called 911 knowing her history of seizure disorder she reports she did not have any tonic-clonic activity she did not fall she did not bite her tongue she has history of seizures many years she was on Dilantin and she was on Keppra however she is not on any meds now due the fact that she does not have neurology she says patient is in the ER mildly sleepy but we be alert and oriented 3 she did not receive anything en route from the paramedics and she has not taken any intake electric meds for many months she was worried she was going to have a tonic-clonic seizure due to the ER as she was sitting PFSH Past Medical History ADD: No (DENIES) ADHD: No (DENIES) Asthma: Yes Anxiety: Yes Cancer: No Cardiovascular Problems: Yes Diabetes: No Diminished Hearing: No Psychiatric: Yes (HX ADHD, ADD) Immunizations Current: Yes Migraines: No Seizures: Yes (epilepsy) Thyroid Disease: No Ulcer: No Menopausal: No : 2 Para: 1 Miscarriage: 1 Past Surgical History Appendectomy: No Cholecystectomy: Yes Tonsillectomy: Yes Social History Alcohol Use: No Tobacco Use: Yes (1/2 PPD) Substance Use: No Allergies-Medications (Allergen,Severity, Reaction): Coded Allergies: bee venom protein (honey bee) (Unverified Allergy, Severe, anaphylaxis, ) epi pen needed but does not have coconut (Unverified Allergy, Severe, anaphylaxis, 09/05/17) epi pen needed if large amount ingested latex (Unverified Allergy, Severe, skin irritation, 09/05/17) adhesive (Unverified Allergy, Intermediate, skin irritation, 09/05/17) cat dander (Unverified Allergy, Intermediate, sneezing, congestion, ) hydromorphone (Unverified Adverse Reaction, Severe, vomiting, 09/05/17) Reported Meds & Prescriptions Reported Meds & Active Scripts Active Keppra (Levetiracetam) 500 Mg Tab 500 Mg PO BID Review of Systems Except as stated in HPI: all other systems reviewed are Neg Neurologic: Positive: Sensory Disturbance ( and sensation of depersonalization) , Other Physical Exam Narrative GENERAL: awake alert ,, no signs of tonic-clonic injury ,, no postictal mentation SKIN: Warm and dry. HEAD: Atraumatic. Normocephalic. EYES: Pupils equal and round. No scleral icterus. No injection or drainage. ENT: No nasal bleeding or discharge. Mucous membranes pink and moist. NECK: Trachea midline. No JVD. CARDIOVASCULAR: Regular rate and rhythm. RESPIRATORY: No accessory muscle use. Clear to auscultation. Breath sounds equal bilaterally. GASTROINTESTINAL: Abdomen soft, non-tender, nondistended. Hepatic and splenic margins not palpable. MUSCULOSKELETAL: Extremities without clubbing, cyanosis, or edema. No obvious deformities. NEUROLOGICAL: Awake and alert. No obvious cranial nerve deficits. no tongue laceration no lip laceration Motor grossly within normal limits. Five out of 5 muscle strength in the arms and legs. Normal speech. PSYCHIATRIC: Appropriate mood and affect; insight and judgment normal. Data Data Last Documented VS Vital Signs Date Time Temp Pulse Resp B/P (MAP) Pulse Ox O2 Delivery O2 Flow Rate FiO2 09/05/17 04:27 90 16 127/84 (98) 99 09/05/17 01:15 99.1 Orders Orders Lorazepam (Ativan) (09/05/17 02:00) Levetiracetam (Keppra) (09/05/17 02:00) Ed Discharge Order (09/05/17 04:05) MDM Medical Decision Making Medical Screen Exam Complete: Yes Emergency Medical Condition: Yes Differential Diagnosis pre seizure aura , vs anxiety dissociation like Sx Narrative Course keppra and ativan in ED and obseration and discharge home Diagnosis Primary Impression: Aura Patient Instructions: General Instructions, Generalized Tonic Clonic Seizures ( ED) Scripts Levetiracetam (Keppra) 500 Mg Tab 500 MG PO BID for Control Seizures, #60 TAB 0 Refills Prov: Remberto Muñoz MD 09/05/17 Disposition: 01 DISCHARGE HOME Condition: Good Remberto Muñoz MD Sep 05, 2017 02:11
[2017-09-05] MEDS ORDERED: LEVE500 PO (04:04)
[2017-09-05 04:27] VITALS: BP 127/84
== END 2017-09-05 04:56 | disposition home or self-care (01) ==
LOC: NEPC 01:02
DX: G40.909 Epilepsy, unspecified, not intractable, without status epilepticus (principal); F17.200 Nicotine dependence, unspecified, uncomplicated
CPT/HCPCS: 99283

== ENCOUNTER 2018-03-30 01:37 | Emergency (ER) | payer MEDICAID ==
[~2018-03-30] VITALS: Ht 165.1 cm; Wt 100.0 kg
[~2018-03-30 01:37] MED LIST changes: -IBUP-232 PO; +LEVE500 PO; -RANI150T PO; -SENN1TAB PO
[2018-03-30 01:50] VITALS: BP 118/58; PULSE 93; RESP 16; TEMP 98.6; O2SAT 97
[2018-03-30 02:24] LABS: BASOPHIL # 0.1 TH/MM3 (0-0.2); BASOPHIL % 0.8 % (0.0-2.0); EOSINOPHIL # 0.3 TH/MM3 (0-0.4); EOSINOPHIL % 3.4 % (0.0-4.0); HEMATOCRIT 38.3 % (35.0-46.0); HEMOGLOBIN 13.5 GM/DL (11.6-15.3); LYMPH % 36.3 % (9.0-44.0); LYMPHOCYTE # 2.9 TH/MM3 (1.0-4.8); MEAN CELL VOLUME 86.4 FL (80.0-100.0); MEAN CORPUSCULAR HEMOGLOBIN 30.6 PG (27.0-34.0); MEAN CORPUSCULAR HGB CONC 35.4 % (32.0-36.0); MEAN PLATELET VOLUME 8.6 FL (7.0-11.0); MONO % 9.2 % (0.0-8.0); MONOCYTE # 0.7 TH/MM3 (0-0.9); NEUT % 50.3 % (16.0-70.0); PLATELET COUNT 219 TH/MM3 (150-450); RED BLOOD COUNT 4.43 MIL/MM3 (4.00-5.30); RED CELL DISTRIBUTION WIDTH 13.6 % (11.6-17.2); WHITE BLOOD COUNT 7.8 TH/MM3 (4.0-11.0)
[2018-03-30 02:28] LABS: BACTERIA, URINE RARE /hpf; BILIRUBIN, URINE NEG (NEG); BLOOD, URINE MOD (NEG); GLUCOSE,URINE NEG (NEG); KETONE, URINE NEG (NEG); MUCUS URINE FEW /lpf (OCC); NITRITE,URINE NEG (NEG); PH, URINE 5.5 (5.0-8.5); SQUAMOUS EPITHELIAL CELL URINE 1 /hpf (0-5); URINE COLOR YELLOW (YELLW/STRAW); URINE LEUKOCYTE ESTERASE NEG (NEG)
[2018-03-30 02:39] LABS: ALBUMIN 3.7 GM/DL (3.4-5.0); ALT (GPT) 31 U/L (9-42); AST (GOT) 18 U/L (16-38); BICARBONATE 23.3 MEQ/L (21.0-32.0); BLOOD UREA NITROGEN 11 MG/DL (7-18); CALCIUM 8.5 MG/DL (8.5-10.1); CHLORIDE 105 MEQ/L (98-107); CREATININE 0.87 MG/DL (0.50-1.00); GLOMERULAR FILTRATION RATE 83 ML/MIN (>89); GLUCOSE,RANDOM 176 MG/DL (74-106); SODIUM (NA) 142 MEQ/L (136-145)
[2018-03-30 02:42] LABS: ALKALINE PHOSPHATASE 116 U/L (45-117); TOTAL BILIRUBIN ADULT 0.2 MG/DL (0.2-1.0); TOTAL PROTEIN 7.6 GM/DL (6.4-8.2)
--- NOTE | 2018-03-30 03:28 | PD ---
HPI Chief Complaint: GI Complaint Time Seen by Provider: 03:07 Travel History International Travel<30 days: No Contact w/Intl Traveler<30days: No Traveled to known affect area: No History of Present Illness HPI Patient is a 22-year-old female presenting to the emergency depart for evaluation of abdominal pain. Patient states started at 9 PM last night. She reports that she had crab, macaroni cheese for dinner. She thinks this could be related to what she ate. She reports that she is vomited several times and had 3 episodes of loose stools. Symptom onset was sudden, she states that her whole abdomen is cramping and painful. She rates her pain 6 out of 10, she states she just cannot get comfortable. Patient denies any dysuria, headache, chest pain, shortness of breath. She last vomited 2 hours ago. She reports nausea now. PFSH Past Medical History ADHD: Yes Asthma: Yes Anxiety: Yes Cardiovascular Problems: Yes Immunizations Current: Yes Seizures: Yes (epilepsy) Tetanus Vaccination: < 5 Years Influenza Vaccination: No ?: Not LMP: ON IT NOW Menopausal: No : 2 Para: 1 Miscarriage: 1 Past Surgical History Cholecystectomy: Yes Tonsillectomy: Yes Social History Alcohol Use: Yes (OCC) Tobacco Use: Yes (/2 PPD) Substance Use: Yes (MARIJUANA) Allergies-Medications (Allergen,Severity, Reaction): Coded Allergies: bee venom protein (honey bee) (Unverified Allergy, Severe, anaphylaxis, ) epi pen needed but does not have coconut (Unverified Allergy, Severe, anaphylaxis, 09/05/17) epi pen needed if large amount ingested latex (Unverified Allergy, Severe, skin irritation, 09/05/17) adhesive (Unverified Allergy, Intermediate, skin irritation, 09/05/17) cat dander (Unverified Allergy, Intermediate, sneezing, congestion, ) Unable to Assess (Unverified Allergy, Unknown, 09/12/17) hydromorphone (Unverified Adverse Reaction, Severe, vomiting, 09/05/17) Reported Meds & Prescriptions Reported Meds & Active Scripts Active Keppra (Levetiracetam) 500 Mg Tab 500 Mg PO BID Active Prescriptions or Reported Medications Unobtainable Review of Systems Except as stated in HPI: all other systems reviewed are Neg General / Constitutional: No: Fever HENT: No: Headaches Cardiovascular: No: Chest Pain or Discomfort Respiratory: No: Shortness of Breath Gastrointestinal: Positive: Nausea, Vomiting, Diarrhea, Abdominal Pain Genitourinary: No: Dysuria Physical Exam Narrative GENERAL: Obese, well-developed, alert female. Presenting in no acute distress SKIN: Warm and dry. HEAD: Atraumatic. Normocephalic. EYES: Pupils equal and round. No scleral icterus. No injection or drainage. ENT: No nasal bleeding or discharge. Mucous membranes pink and moist. NECK: Trachea midline. No JVD. CARDIOVASCULAR: Regular rate and rhythm. RESPIRATORY: No accessory muscle use. Clear to auscultation. Breath sounds equal bilaterally. GASTROINTESTINAL: Abdomen soft, tender diffusely, mildly, nondistended. Hepatic and splenic margins not palpable. Hypoactive bowel sounds, no rebound, no guarding. MUSCULOSKELETAL: Extremities without clubbing, cyanosis, or edema. No obvious deformities. NEUROLOGICAL: Awake and alert. No obvious cranial nerve deficits. Motor grossly within normal limits. Five out of 5 muscle strength in the arms and legs. Normal speech. PSYCHIATRIC: Appropriate mood and affect; insight and judgment normal. Data Data Last Documented VS Vital Signs Date Time Temp Pulse Resp B/P (MAP) Pulse Ox O2 Delivery O2 Flow Rate FiO2 03/30/18 03:45 89 16 03/30/18 03:45 97 Room Air 03/30/18 01:50 98.6 118/58 (78) Orders Orders Complete Blood Count With Diff (03/30/18 01:56) Comprehensive Metabolic Panel (03/30/18 01:56) Urinalysis - C+S If Indicated (03/30/18 01:56) Ed Urine Pregnancytest Poc (03/30/18 01:56) Iv Access Insert/Monitor (03/30/18 01:56) Oxygen Administration (03/30/18 01:56) Oximetry (03/30/18 01:56) Lipase (03/30/18 01:56) Sodium Chlor 0.9% 1000 Ml Inj (Ns 1000 M (03/30/18 03:30) Promethazine Inj (Phenergan Inj) (03/30/18 03:30) Dicyclomine Inj (Bentyl Inj) (03/30/18 03:30) Ct Abd/Pel W Iv Contrast(Rout) (03/30/18 ) Iohexol 350 Inj (Omnipaque 350 Inj) (03/30/18 04:06) Labs Laboratory Tests Test 03/30/18 02:00 03/30/18 02:05 White Blood Count 7.8 TH/MM3 Red Blood Count 4.43 MIL/MM3 Hemoglobin 13.5 GM/DL Hematocrit 38.3 % Mean Corpuscular Volume 86.4 FL Mean Corpuscular Hemoglobin 30.6 PG Mean Corpuscular Hemoglobin Concent 35.4 % Red Cell Distribution Width 13.6 % Platelet Count 219 TH/MM3 Mean Platelet Volume 8.6 FL Neutrophils (%) (Auto) 50.3 % Lymphocytes (%) (Auto) 36.3 % Monocytes (%) (Auto) 9.2 % Eosinophils (%) (Auto) 3.4 % Basophils (%) (Auto) 0.8 % Neutrophils # (Auto) 4.0 TH/MM3 Lymphocytes # (Auto) 2.9 TH/MM3 Monocytes # (Auto) 0.7 TH/MM3 Eosinophils # (Auto) 0.3 TH/MM3 Basophils # (Auto) 0.1 TH/MM3 CBC Comment DIFF FINAL Differential Comment Blood Urea Nitrogen 11 MG/DL Creatinine 0.87 MG/DL Random Glucose 176 MG/DL Total Protein 7.6 GM/DL Albumin 3.7 GM/DL Calcium Level 8.5 MG/DL Alkaline Phosphatase 116 U/L Aspartate Amino Transf (AST/SGOT) 18 U/L Alanine Aminotransferase (ALT/SGPT) 31 U/L Total Bilirubin 0.2 MG/DL Sodium Level 142 MEQ/L Potassium Level 3.6 MEQ/L Chloride Level 105 MEQ/L Carbon Dioxide Level 23.3 MEQ/L Anion Gap 14 MEQ/L Estimat Glomerular Filtration Rate 83 ML/MIN Lipase 158 U/L Urine Color YELLOW Urine Turbidity CLEAR Urine pH 5.5 Urine Specific [place] 1.021 Urine Protein NEG mg/dL Urine Glucose (UA) NEG mg/dL Urine Ketones NEG mg/dL Urine Occult Blood MOD Urine Nitrite NEG Urine Bilirubin NEG Urine Urobilinogen LESS THAN 2.0 MG/DL Urine Leukocyte Esterase NEG Urine RBC 29 /hpf Urine WBC 1 /hpf Urine Squamous Epithelial Cells 1 /hpf Urine Bacteria RARE /hpf Urine Mucus FEW /lpf Microscopic Urinalysis Comment CULT NOT INDICATED MDM Medical Decision Making Medical Screen Exam Complete: Yes Emergency Medical Condition: Yes Interpretation(s) Last Impressions Abdomen/Pelvis CT 03/30/18 0000 Signed Impressions: CONCLUSION: 1. Tiny right lung base nodule most likely benign and noncontrast chest CT is suggested in one year as a conservative follow up. 2. Distended stomach filled with ingested material without obvious obstructing mass and possibility of gastroparesis should be entertained and clinical corre lation is suggested. 3. Questionable fatty liver with a tiny cyst right hepatic lobe. Laboratory Tests Test 03/30/18 02:00 03/30/18 02:05 White Blood Count 7.8 TH/MM3 Red Blood Count 4.43 MIL/MM3 Hemoglobin 13.5 GM/DL Hematocrit 38.3 % Mean Corpuscular Volume 86.4 FL Mean Corpuscular Hemoglobin 30.6 PG Mean Corpuscular Hemoglobin Concent 35.4 % Red Cell Distribution Width 13.6 % Platelet Count 219 TH/MM3 Mean Platelet Volume 8.6 FL Neutrophils (%) (Auto) 50.3 % Lymphocytes (%) (Auto) 36.3 % Monocytes (%) (Auto) 9.2 % Eosinophils (%) (Auto) 3.4 % Basophils (%) (Auto) 0.8 % Neutrophils # (Auto) 4.0 TH/MM3 Lymphocytes # (Auto) 2.9 TH/MM3 Monocytes # (Auto) 0.7 TH/MM3 Eosinophils # (Auto) 0.3 TH/MM3 Basophils # (Auto) 0.1 TH/MM3 CBC Comment DIFF FINAL Differential Comment Blood Urea Nitrogen 11 MG/DL Creatinine 0.87 MG/DL Random Glucose 176 MG/DL Total Protein 7.6 GM/DL Albumin 3.7 GM/DL Calcium Level 8.5 MG/DL Alkaline Phosphatase 116 U/L Aspartate Amino Transf (AST/SGOT) 18 U/L Alanine Aminotransferase (ALT/SGPT) 31 U/L Total Bilirubin 0.2 MG/DL Sodium Level 142 MEQ/L Potassium Level 3.6 MEQ/L Chloride Level 105 MEQ/L Carbon Dioxide Level 23.3 MEQ/L Anion Gap 14 MEQ/L Estimat Glomerular Filtration Rate 83 ML/MIN Lipase 158 U/L Urine Color YELLOW Urine Turbidity CLEAR Urine pH 5.5 Urine Specific [place] 1.021 Urine Protein NEG mg/dL Urine Glucose (UA) NEG mg/dL Urine Ketones NEG mg/dL Urine Occult Blood MOD Urine Nitrite NEG Urine Bilirubin NEG Urine Urobilinogen LESS THAN 2.0 MG/DL Urine Leukocyte Esterase NEG Urine RBC 29 /hpf Urine WBC 1 /hpf Urine Squamous Epithelial Cells 1 /hpf Urine Bacteria RARE /hpf Urine Mucus FEW /lpf Microscopic Urinalysis Comment CULT NOT INDICATED Vital Signs Date Time Temp Pulse Resp B/P (MAP) Pulse Ox O2 Delivery O2 Flow Rate FiO2 03/30/18 01:50 98.6 93 16 118/58 (78) 97 Differential Diagnosis Gastroenteritis versus colitis versus pancreatitis versus obstruction versus other Narrative Course Patient is a 22-year-old female presenting to the emergency depart for evaluation of abdominal pain that started 6 hours ago. Patient's vital signs are stable, labs were drawn in triage and are unremarkable. Patient continues to report diffuse abdominal pain, she has had a cholecystectomy in the past. Will obtain a CT scan of the abdomen and pelvis, patient be given IV fluids, Phenergan and Bentyl. Will reassess. CT scan of the abdomen and pelvis which was read by the radiologist is as follows : Tiny right lung base nodule most likely benign and noncontrast chest CT is suggested in one year as a conservative follow up. Distended stomach filled with ingested material without obvious obstructing mass and possibility of gastroparesis should be entertained and clinical correlation is suggested. Questionable fatty liver with a tiny cyst right hepatic lobe. Findings were also reviewed by my attending physician. It is unlikely patient has been vomiting as often as she stated as her stomach is still full of food. Patient will be discharged home with oral nausea medication. She is encouraged to maintain a bland, low-residue diet. She was encouraged to follow-up with her primary care provider regarding the lung nodule. She was advised to eat small more frequent meals and avoid overeating. Patient verbalized understanding of instructions. Patient stable for discharge. Diagnosis Primary Impression: GI symptoms Referrals: Primary Care Physician 3 days Patient Instructions: Gastroparesis (ED), General Instructions Additional Instructions: Follow-up with your primary doctor for further evaluation of the lung nodule, a CT scan of the chest was recommended in 1 year for follow-up. Eat small more frequent meals, avoid overeating Maintain a bland, easy to digest diet, increasing as tolerated Take medications as directed Return to emergency department for any new or worsening symptoms Med/Other Pt SpecificInfo: Prescription(s) given Scripts Ondansetron Odt (Zofran Odt) 4 Mg Tab 4 MG SL Q6HR Y for Nausea/Vomiting, #10 TAB 0 Refills Prov: Tiffany Burns 03/30/18 Disposition: 01 DISCHARGE HOME Condition: Stable Tiffany Burns March 30, 2018 03:28
[2018-03-30] MEDS: SODIUM CHLOR 0.9% 1000 ML INJ 1,000 ML IV ONE ×2 (03:30→03:50)
[2018-03-30] MEDS ORDERED: PROMETHAZINE INJ 25 MG/ML VIAL IM ONE (03:30)
[2018-03-30] MEDS ORDERED: DICYCLOMINE HCL 20 MG/2 ML VIAL IM ONE (03:30)
[2018-03-30 03:45] VITALS: PULSE 89; RESP 16
[2018-03-30] MEDS ORDERED: IOHEXOL 350 MG/ML 10 ML VIAL (for RAD DIAG) IVCONTRAST ONE (04:06)
--- NOTE | 2018-03-30 04:14 | RADRPT ---
EXAM DATE: 03/30/2018 4:05 AM EDT AGE/SEX: 22 years / Female INDICATIONS: Diffuse abdominal pain with vomiting. CLINICAL DATA: This is the patient's initial encounter. Patient reports that signs and symptoms have been present for 1 day and indicates a pain score of 7/10. MEDICAL/SURGICAL HISTORY: None. Cholecystectomy. ORAL CONTRAST: No oral contrast ingested. RADIATION DOSE: 16.41 CTDI (mGy) COMPARISON: No prior exams available for comparison. TECHNIQUE: Multiple contiguous axial images were obtained through the abdomen and pelvis following b olus infusion of 95 ml Omnipaque 350 (iohexol) nonionic water-soluble contrast as a single exam dos e. No oral contrast ingested. Using automated exposure control and adjustment of the mA and/or kV ac cording to patient size, the radiation dose was kept as low as reasonably achievable to obtain optima l diagnostic quality images. FINDINGS: Abdomen CT: The spleen, pancreas, kidneys, adrenals are unremarkable. There is a tiny 3 to 4 mm simple cyst in th e right hepatic lobe. The liver is questionably fatty and measures 21 cm in cranial caudal dimension. There is no evidence for any appreciable pathological adenopathy, free fluid, or bowel obstruction. The stomach is distended measures 19.1 cm with ingested material. There is a tiny 4 mm right lo wer lobe nodule. There are multiple small benign-appearing mesenteric lymph nodes diffusely. Pelvic CT: There is no evidence for mass, abscess formation, or any significant adenopathy within the pelvis. Th ere is a tiny bone island in the left femoral head. A tampon is in place. CONCLUSION: 1. Tiny right lung base nodule most likely benign and noncontrast chest CT is suggested in one year as a conservative follow up. 2. Distended stomach filled with ingested material without obvious obstructing mass and possibility of gastroparesis should be entertained and clinical correlation is suggested. 3. Questionable fatty liver with a tiny cyst right hepatic lobe. Electronically signed by: Bennie Houser MD 03/30/2018 4:13 AM EDT
[2018-03-30] MEDS ORDERED: ZOFR4TAB3 SL (04:45)
== END 2018-03-30 06:12 | disposition home or self-care (01) ==
LOC: NEPD 01:37
DX: R10.9 Unspecified abdominal pain (principal); F12.90 Cannabis use, unspecified, uncomplicated; F17.200 Nicotine dependence, unspecified, uncomplicated; G40.909 Epilepsy, unspecified, not intractable, without status epilepticus
CPT/HCPCS: 74177; 80053; 81001; 83690; 84703; 85025; 96360; 96372; 99284; J0500; J2550; J7030; Q9967